=== PATIENT | male | born 1950 | race Caucasian/White ===

== ENCOUNTER 2018-12-26 12:33 | Outpatient (CLI) | payer MEDICARE, BC, SELFPAY ==
[2018-12-27 10:50] LABS: Lyme Ab w Rflx to Lyme Confirm Negative
== END 2018-12-26 12:53 ==
PROVIDERS: PCP Emergency Medicine; Visit Provider Emergency Medicine
DX: M25.50 Pain in unspecified joint (principal)
CPT/HCPCS: 36415; 86618

== ENCOUNTER 2019-02-27 09:44 | Outpatient (CLI) | payer MEDICARE, BC, SELFPAY ==
[2019-02-27 12:50] LABS: Anion Gap 7.4 mmol/L (3-11); BUN 23 mg/dL (7-18); CO2 28.6 mmol/L (21.0-32.0); CREATININE 1.06 mg/dL (0.70-1.30); Calcium 9.1 mg/dL (8.5-10.1); Chloride 108 mmol/L (98-107); Glucose 91 mg/dL (70-100); Potassium 5.2 mmol/L (3.5-5.1); Sodium 144 mmol/L (136-145)
== END 2019-02-27 10:04 ==
PROVIDERS: PCP Emergency Medicine; Visit Provider Emergency Medicine
DX: I42.8 Other cardiomyopathies (principal)
CPT/HCPCS: 36415; 80048

== ENCOUNTER 2020-03-03 04:47 | Outpatient (CLI) | payer MEDICARE, BC, SELFPAY | END 2020-03-03 05:07 | PROVIDERS: PCP Emergency Medicine; Visit Provider Internal Medicine | DX: I49.3 Ventricular premature depolarization (principal) | CPT/HCPCS: 93225 ==

== ENCOUNTER 2020-03-05 12:05 | Outpatient (CLI) | payer MEDICARE, BC, SELFPAY ==
--- NOTE | 2020-03-05 14:43 | W.HOLTRPT ---
Date of service: 03/05/20 Time of Service: 14:43 Holter Monitor Report Referring Provider:: Nona Young Indications:: PVCs. Holter Monitor Note: This is a 24-hour Holter monitor for indication of PVCs. ?The patient was in normal sinus rhythm for the majority of the recording. Mean heart rate was 64 bpm. ?There were 2 episodes of SVT with the longest lasting 11 beats. There were rare PACs. ?There were 0 episodes of ventricular tachycardia and occasional (3%) single ventricular ectopic beats. ?There are no episodes of atrial fibrillation, no pauses in 3 seconds no evidence of high degree heart block.
== END 2020-03-05 12:25 ==
PROVIDERS: PCP Emergency Medicine; Visit Provider Internal Medicine
DX: I49.3 Ventricular premature depolarization (principal); I47.1 Supraventricular tachycardia; I49.1 Atrial premature depolarization
CPT/HCPCS: 93226

== ENCOUNTER 2020-03-05 14:43 | Outpatient (CLI) | payer MEDICARE, BC, SELFPAY | END 2020-03-05 15:03 | PROVIDERS: PCP Emergency Medicine; Referring Provider Internal Medicine; Visit Provider Internal Medicine Cardiovascular Disease | DX: I49.3 Ventricular premature depolarization (principal); I47.1 Supraventricular tachycardia; I49.1 Atrial premature depolarization | CPT/HCPCS: 93227 ==

== ENCOUNTER 2020-05-05 12:28 | Outpatient (REF) | payer MEDICARE, BC, SELFPAY ==
[2020-05-05 22:01] LABS: Anion Gap 9.9 mmol/L (3-11); BUN 21 mg/dL (7-18); CO2 25.1 mmol/L (21.0-32.0); CREATININE 0.97 mg/dL (0.70-1.30); Calcium 9.1 mg/dL (8.5-10.1); Chloride 105 mmol/L (98-107); Glucose 87 mg/dL (74-106); NT-proBNP 152 pg/mL (<300); Potassium 4.4 mmol/L (3.5-5.1); Sodium 140 mmol/L (136-145)
== END 2020-05-05 12:48 ==
LOC: LBN 12:28
PROVIDERS: PCP Emergency Medicine; Visit Provider Emergency Medicine
DX: I10 Essential (primary) hypertension (principal); I50.9 Heart failure, unspecified
CPT/HCPCS: 80048; 83880

== ENCOUNTER 2020-06-11 04:39 | Outpatient (CLI) | payer MEDICARE, BC, SELFPAY ==
[2020-06-14 15:41] LABS: Patient Race White; SARS-CoV-2 RNA Undetected (Undetected); SARS-CoV-2 Specimen Source Nasal
== END 2020-06-11 04:59 ==
PROVIDERS: PCP Emergency Medicine; Visit Provider Emergency Medicine
DX: Z11.59 Encounter for screening for other viral diseases (principal)
CPT/HCPCS: U0003

== ENCOUNTER 2020-12-22 08:32 | Outpatient (CLI) | payer MEDICARE, BC, SELFPAY ==
[2020-12-22 12:59] LABS: Anion Gap 10.3 mmol/L (3-11); BUN 17 mg/dL (7-18); CO2 25.7 mmol/L (21.0-32.0); CREATININE 1.1 mg/dL (0.70-1.30); Calcium 9.1 mg/dL (8.5-10.1); Chloride 107 mmol/L (98-107); Glucose 107 mg/dL (74-106); NT-proBNP 65 pg/mL (<300); Potassium 4.2 mmol/L (3.5-5.1); Sodium 143 mmol/L (136-145)
== END 2020-12-22 08:33 | disposition home or self-care (01) ==
LOC: LOS 08:32
PROVIDERS: PCP Emergency Medicine; Visit Provider Emergency Medicine
DX: I10 Essential (primary) hypertension (principal); I50.9 Heart failure, unspecified
CPT/HCPCS: 36415; 80048; 83880

== ENCOUNTER 2021-03-11 01:52 | Outpatient (CLI) | payer MEDICARE, BC, SELFPAY ==
--- NOTE | 2021-03-11 | DI.US_ITS ---
APPROVED REPORT EXAM: Comprehensive 2D, Doppler, and color-flow Echocardiogram Patient Location: Out-Patient Time Broker: Charleen Brito RDCS ([place]) Indications: Cardiomyopathy, Premature ventricular contraction Other Information Study Quality: Adequate Conclusion Left Ventricle : The left ventricle is normal size. The left ventricular systolic function is normal. The left ventricular ejection fraction is within the normal range. There is normal left ventricular wall thickness. There is normal LV segmental wall motion. The left ventricular diastolic function is normal. LVEF is 55%. Right Ventricle : The right ventricle is normal size. The right ventricular systolic function is norm al. The RVSP is 25 mmHg. Atria : The left atrium size is normal. The right atrium size is normal. Valves: There are no hemodynamically significant valvular lesions. Great Vessels : The aortic root is normal in size. The ascending aorta is mildly dilated. Aortic arch is normal in caliber. IVC is normal in size and collapses >50% with inspiration. Please see remainder of study for further details. Wall motion Left Ventricle The left ventricle is normal size. The left ventricular systolic function is normal. The left ventric ular ejection fraction is within the normal range. There is normal left ventricular wall thickness. T here is normal LV segmental wall motion. The left ventricular diastolic function is normal. There is no ventricular septal defect visualized. LVEF is 55%. Right Ventricle The right ventricle is normal size. The right ventricular systolic function is normal. The RVSP is 25 mmHg. Atria The left atrium size is normal. The right atrium size is normal. 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 Aortic Valve The Aortic valve is sclerotic. Aortic valve is trileaflet. There is no aortic valvular stenosis. No a ortic regurgitation is present. Mitral Valve The mitral valve is normal in structure. No evidence of mitral valve stenosis. Trace mitral regurgita tion. Tricuspid Valve The tricuspid valve is normal in structure. There is no tricuspid valve stenosis. Trace tricuspid reg urgitation. Pulmonic Valve The pulmonary valve is normal in structure. There is no pulmonic valvular stenosis. Trace pulmonic re gurgitation. Great Vessels The aortic root is normal in size. The ascending aorta is mildly dilated. Aortic arch is normal in ca liber. IVC is normal in size and collapses >50% with inspiration. Pericardium There is no pericardial effusion. 2D Dimensions IVSD d PLAX 1.12 cm M: 0.6-1.2 LV Vol A2C d MOD 115.0 mL LVPW d PLAX 1.11 cm M: 0.6 - 1.2 LV Vol A4C d MOD 99.1 mL LVID d PLAX 4.95 cm M: 4.2 - 5.8 LA vol/ BSA A2C s A-L 18.3 mL/m2 LVDs 3.40 cm M: 2.5 - 4.0 LA vol/ BSA A4C s A-L 30.4 mL/m2 Ao Root d 3.58 cm M: 3.1 - 3.7 LA Vol/ BSA Biplane s A-L 24.6 mL/m2 RA Area A4C 16.10 cm2 LA Area A4C s MOD 18.72 cm2 RA Vol/ BSA A4C s A-L 23.1 mL/m2 LA Area A2C s MOD 13.94 cm2 Ao Asc Diam d 3.55 cm M: 2.6 - 3.4 LV EF A4C MOD 55.5 % LV EF Teichholz 57.9 % LV EF A2C MOD 55.6 % LVEF (Tenorio's) 57.21 % M: 52 - 72 LV EF Biplane MOD 57.2 % LV Volume 82.69 mL M: 62 - 150 SV 62.82 mL LV Volume Index 41.97 mL/m2 M: 34 - 74 SV Index 31.80 mL/m2 LV Vol Biplane MOD 109.8 mL FS 30.60 % M-Mode TAPSE 2.43 cm (M/F) >1.7 LV Diastology MV E' medial 0.075 (>0.07 m/s) E/A Ratio 0.8 LV E/e MED 6.10 (<14) MV E Vmax 0.46 (0.4-1.3 m/s) MV E' lateral 0.084 (>0.1 m/s) MV A Vmax 0.60 (0.4-1.3 m/s) LV E/e LAT 5.40 (<14) MV E/A Ratio 0.70 MV E/E' medial 6.12 MV E/E' lateral 5.41 Aortic Valve LVOT Area 3.57 cm2 AoV Area Vmax 2.67 cm2 LVOT Vmax 0.99 m/s AoV Area/ BSA (Vmax) 1.35 cm2/m2 LVOT Mean Josue. 0.60 m/s MISHA Mean Josue. 2.51 cm2 LVOT Peak Grad 4.0 mmHg MISHA Mean Josue. Index 1.27 cm2/m2 LVOT Mean Grad 1.8 mmHg LVOT VTI 0.194 m LVOT Diam s 2.10 cm AoV Vmax 1.33 m/s Velocity Ratio 0.74 AoV Mean Josue. 0.86 m/s AoV Peak Grad 7.1 mmHg LVOT SV 69.35 mL AoV Mean Grad 3.4 mmHg AoV VTI 0.239 m AoV Area VTI 2.90 cm2 AoV Area/ BSA (VTI) 1.47 cm/m2 Mitral Valve MV DT 469 (160-240 msec) MV PHT 136 msec MV Area PHT 1.62 cm2 MV VTI 0.233 m MV Area VTI 2.98 (4.0-6.0 cm2) Pulmonary Valve PV Vmax 1.45 (0.5-1.5 m/s) RVOT Peak Gr. 2.42 mmHg PV Peak Grad 8.5 mmHg RVOT Mean Gr. 1.05 mmHg PV Mean Grad 3.9 mmHg RVOT VTI 0.159 m PV VTI 0.270 m RVOT Vmax 0.78 m/s Tricuspid Valve TR Peak Grad 22.3 mmHg TR Vmax 2.37 m/s RA Pressure 3.00 mmHg RVSP (TR) 25.4 mmHg
== END 2021-03-11 02:12 ==
PROVIDERS: PCP Emergency Medicine; Visit Provider Internal Medicine
DX: I42.9 Cardiomyopathy, unspecified (principal); I49.3 Ventricular premature depolarization; I77.810 Thoracic aortic ectasia
CPT/HCPCS: 93306

== ENCOUNTER 2021-06-24 16:19 | Outpatient (REF) | payer MEDICARE, BC, SELFPAY | END 2021-06-24 16:20 | disposition home or self-care (01) | LOC: LBN 16:19 | PROVIDERS: PCP Emergency Medicine; Visit Provider Emergency Medicine | DX: R19.7 Diarrhea, unspecified (principal) | CPT/HCPCS: 87329 ==

== ENCOUNTER → 2022-03-08 01:15 | Outpatient (CLI) | payer MEDICARE, SELFPAY ==
--- NOTE | 2022-03-08 07:00 | DI.US_ITS ---
APPROVED REPORT EXAM: Comprehensive 2D, Doppler, and color-flow Echocardiogram Patient Location: Out-Patient Billing Checker: Charleen Brito RDCS ([place]) Indications: F/U Cardiomyopathy Other Information Study Quality: Adequate Conclusion Normal left ventricular wall thickness and chamber size. Estimated ejection fraction is 55%. Wall m otion is normal Normal right ventricular size and systolic function Both atria are normal in size. There is an atrial septal aneurysm There are no structural valvular abnormalities Trace to mild mitral regurgitation Trace tricuspid regurgitation. Estimated right ventricular systolic pressure is 20 mmHg Mildly dilated ascending aorta measuring 3.55 cm Wall motion Left Ventricle The left ventricle is normal size. The left ventricular systolic function is normal. The left ventric ular ejection fraction is within the normal range. There is normal left ventricular wall thickness. T here is normal LV segmental wall motion. There is no ventricular septal defect visualized. LVEF is 55 %. Right Ventricle The right ventricle is normal size. The right ventricular systolic function is normal. The RVSP is 20 .2mmHg. Atria The left atrium size is normal. The right atrium size is normal. Atrial septal aneurysm is present. Aortic Valve The aortic valve is normal in structure. Aortic valve is trileaflet. There is no aortic valvular sten osis. No aortic regurgitation is present. Mitral Valve The mitral valve is normal in structure. No evidence of mitral valve stenosis. Trace to mild mitral r egurgitation. Tricuspid Valve The tricuspid valve is normal in structure. There is no tricuspid valve stenosis. Trace tricuspid reg urgitation. Pulmonic Valve The pulmonary valve is normal in structure. There is no pulmonic valvular stenosis. Trace to mild pul cathi regurgitation. Great Vessels The aortic root is normal in size. The ascending aorta is mildly dilated. Aortic arch is normal in ca liber. IVC is normal in size and collapses >50% with inspiration. Pericardium There is no pericardial effusion. 2D Dimensions IVSD d PLAX 1.12 cm M: 0.6-1.2 LV Vol A2C d MOD 92.0 mL LVPW d PLAX 1.10 cm M: 0.6 - 1.2 LV Vol A4C d MOD 103.4 mL LVID d PLAX 5.06 cm M: 4.2 - 5.8 LA vol/ BSA A2C s A-L 28.6 mL/m2 LVDs 3.60 cm M: 2.5 - 4.0 LA vol/ BSA A4C s A-L 16.7 mL/m2 Ao Root d 3.45 cm M: 3.1 - 3.7 LA Vol/ BSA Biplane s A-L 22.8 mL/m2 RA Area A4C 14.11 cm2 LA Area A4C s MOD 14.36 cm2 RA Vol/ BSA A4C s A-L 18.7 mL/m2 LA Area A2C s MOD 18.01 cm2 Ao Asc Diam d 3.55 cm M: 2.6 - 3.4 LV EF A4C MOD 56.9 % LV EF Teichholz 54.9 % LV EF A2C MOD 55.0 % LVEF (Tenorio's) 54.31 % M: 52 - 72 LV EF Biplane MOD 54.3 % LV Volume 73.52 mL M: 62 - 150 SV 53.04 mL LV Volume Index 37.31 mL/m2 M: 34 - 74 SV Index 26.82 mL/m2 LV Vol Biplane MOD 97.7 mL FS 28.60 % M-Mode TAPSE 2.45 cm (M/F) >1.7 LV Diastology MV E' medial 0.080 (>0.07 m/s) E/A Ratio 0.6 LV E/e MED 5.30 (<14) MV E Vmax 0.43 (0.4-1.3 m/s) MV E' lateral 0.065 (>0.1 m/s) MV A Vmax 0.75 (0.4-1.3 m/s) LV E/e LAT 6.55 (<14) MV E/A Ratio 0.56 MV E/E' medial 5.35 MV E/E' lateral 6.55 Aortic Valve LVOT Area 3.55 cm2 AoV Area Vmax 2.63 cm2 LVOT Vmax 0.93 m/s AoV Area/ BSA (Vmax) 1.33 cm2/m2 LVOT Mean Josue. 0.59 m/s MISHA Mean Josue. 2.37 cm2 LVOT Peak Grad 3.4 mmHg MISHA Mean Josue. Index 1.20 cm2/m2 LVOT Mean Grad 1.7 mmHg LVOT VTI 0.198 m LVOT Diam s 2.10 cm AoV Vmax 1.25 m/s Velocity Ratio 0.74 AoV Mean Josue. 0.89 m/s AoV Peak Grad 6.3 mmHg LVOT SV 70.27 mL AoV Mean Grad 3.4 mmHg AoV VTI 0.242 m AoV Area VTI 2.91 cm2 AoV Area/ BSA (VTI) 1.47 cm/m2 Mitral Valve MV DT 609 (160-240 msec) MR Vmax 5.13 m/s MV PHT 177 msec MR VTI 1.817 m MV Area PHT 1.25 cm2 MR Peak Grad 105.4 mmHg MV VTI 0.365 m MR Mean Grad 75.9 mmHg MV Area VTI 1.93 (4.0-6.0 cm2) Pulmonary Valve PV Vmax 1.28 (0.5-1.5 m/s) RVOT Peak Gr. 1.09 mmHg PV Peak Grad 6.5 mmHg RVOT Mean Gr. 0.55 mmHg PV Mean Grad 3.4 mmHg RVOT VTI 0.113 m PV VTI 0.246 m RVOT Vmax 0.52 m/s Tricuspid Valve TR Peak Grad 17.2 mmHg TR Vmax 2.07 m/s RA Pressure 3.00 mmHg RVSP (TR) 20.2 mmHg
== END ==
PROVIDERS: PCP Family Medicine; Visit Provider Family Medicine
DX: I42.8 Other cardiomyopathies (principal)
CPT/HCPCS: 93306

== ENCOUNTER 2022-04-25 04:36 | Outpatient (CLI) | payer MEDICARE, SELFPAY ==
[2022-04-25 12:39] LABS: Anion Gap 8.7 mmol/L (3-11); BUN 21 mg/dL (7-18); CO2 25.3 mmol/L (21.0-32.0); CREATININE 1.2 mg/dL (0.70-1.30); Calcium 8.8 mg/dL (8.5-10.1); Chloride 108 mmol/L (98-107); Estimated GFR 63.85 (mL/min/1.73m2); Glucose 99 mg/dL (74-106); Potassium 4.2 mmol/L (3.5-5.1); Sodium 142 mmol/L (136-145)
== END 2022-04-25 04:37 | disposition home or self-care (01) ==
LOC: LOS 04:37
PROVIDERS: PCP Family Medicine; Visit Provider Family Medicine
DX: I10 Essential (primary) hypertension (principal)
CPT/HCPCS: 36415; 80048

== ENCOUNTER 2022-08-05 01:10 | Outpatient (CLI) | payer MEDICARE, SELFPAY ==
[2022-08-05 12:37] LABS: ALT 29 U/L (16-63); AST 20 U/L (15-37); Albumin 3.9 g/dL (3.4-5.0); Alkaline Phosphatase 75 U/L (46-116); Anion Gap 8.5 mmol/L (3-11); BUN 17 mg/dL (7-18); Bilirubin, Total 0.7 mg/dL (0.2-1.0); CO2 25.5 mmol/L (21.0-32.0); CREATININE 1.1 mg/dL (0.70-1.30); Calcium 8.9 mg/dL (8.5-10.1); Calculated LDL 111 mg/dL (<100); Chloride 109 mmol/L (98-107); Cholesterol 180 mg/dL (<200); Estimated GFR 70.88 (mL/min/1.73m2); Glucose 96 mg/dL (74-106); HDL Cholesterol 48 mg/dL (40-60); Potassium 4.5 mmol/L (3.5-5.1); Sodium 143 mmol/L (136-145); Total Protein 7.1 g/dL (6.4-8.2); Triglyceride 106 mg/dL (<150)
== END 2022-08-05 01:11 | disposition home or self-care (01) ==
LOC: LOS 01:10
PROVIDERS: PCP Family Medicine; Visit Provider Family Medicine
DX: I10 Essential (primary) hypertension (principal); I42.8 Other cardiomyopathies
CPT/HCPCS: 36415; 80053; 80061

== ENCOUNTER 2022-09-19 10:12 | Outpatient (CLI) | payer MEDICARE, SELFPAY ==
--- NOTE | 2022-09-19 | DI.US_ITS ---
APPROVED REPORT EXAM: Comprehensive 2D, Doppler, and color-flow Echocardiogram Patient Location: Out-Patient Automobile Dealer: Charleen Brito RDCS ([place]) Indications: Nonsustained ventricular tachycardia Other Information Study Quality: Adequate Conclusion Normal left ventricular wall thickness and chamber size. Estimated ejection fraction is 55%. There are no segmental wall motion abnormalities Normal right ventricular size and systolic function Both atria are normal in size Aortic valve is trileaflet and mildly sclerotic without stenosis or regurgitation Mildly thickened mitral leaflets, trace to mild mitral regurgitation Normal tricuspid valve with mild regurgitation. Estimated right ventricular systolic pressure is 24 mmHg Mildly dilated ascending aorta measuring 3.51 cm Wall motion Left Ventricle The left ventricle is normal size. The left ventricular systolic function is normal. The left ventric ular ejection fraction is within the normal range. There is normal left ventricular wall thickness. T here is normal LV segmental wall motion. There is no ventricular septal defect visualized. LVEF is 55 %. Right Ventricle The right ventricle is normal size. The right ventricular systolic function is normal. The RVSP is 24 .1 mmHg. Atria The left atrium size is normal. The right atrium size is normal. Atrial septal aneurysm is present. Aortic Valve The Aortic valve is mildly sclerotic. Aortic valve is trileaflet. There is no aortic valvular stenosi s. No aortic regurgitation is present. Mitral Valve . The mitral valve is mildly thickened. No evidence of mitral valve stenosis. Trace to mild mitral regurgitation. Tricuspid Valve The tricuspid valve is normal in structure. There is no tricuspid valve stenosis. Mild tricuspid regu rgitation. Pulmonic Valve The pulmonary valve is normal in structure. There is no pulmonic valvular stenosis. Mild to moderate pulmonic regurgitation. Great Vessels The aortic root is normal in size. The ascending aorta is mildly dilated. Aortic arch is normal in ca liber. IVC is normal in size and collapses >50% with inspiration. Pericardium There is no pericardial effusion. Technically limited subcostal imaging. 2D Dimensions IVSD d PLAX 0.96 cm M: 0.6-1.2 LV Vol A2C d MOD 107.1 mL LVPW d PLAX 0.96 cm M: 0.6 - 1.2 LV Vol A4C d MOD 122.6 mL LVID d PLAX 5.27 cm M: 4.2 - 5.8 LA vol/ BSA A2C s A-L 24.1 mL/m2 LVDs 3.65 cm M: 2.5 - 4.0 LA vol/ BSA A4C s A-L 24.1 mL/m2 Ao Root d 3.44 cm M: 3.1 - 3.7 LA Vol/ BSA Biplane s A-L 24.8 mL/m2 RA Area A4C 16.04 cm2 LA Area A4C s MOD 17.44 cm2 RA Vol/ BSA A4C s A-L 19.8 mL/m2 LA Area A2C s MOD 16.97 cm2 Ao Asc Diam d 3.51 cm M: 2.6 - 3.4 LV EF A4C MOD 55.8 % LV EF Teichholz 57.8 % LV EF A2C MOD 55.5 % LVEF (Tenorio's) 54.33 % M: 52 - 72 LV EF Biplane MOD 54.3 % LV Volume 88.16 mL M: 62 - 150 SV 63.85 mL LV Volume Index 44.08 mL/m2 M: 34 - 74 SV Index 31.95 mL/m2 LV Vol Biplane MOD 117.5 mL FS 30.65 % M-Mode TAPSE 2.12 cm (M/F) >1.7 LV Diastology MV E' medial 0.076 (>0.07 m/s) E/A Ratio 0.7 LV E/e MED 6.25 (<14) MV E Vmax 0.48 (0.4-1.3 m/s) MV E' lateral 0.073 (>0.1 m/s) MV A Vmax 0.65 (0.4-1.3 m/s) LV E/e LAT 6.45 (<14) MV E/A Ratio 0.68 MV E/E' medial 6.28 MV E/E' lateral 6.49 Aortic Valve LVOT Area 3.16 cm2 AoV Area Vmax 2.42 cm2 LVOT Vmax 0.92 m/s AoV Area/ BSA (Vmax) 1.21 cm2/m2 LVOT Mean Josue. 0.61 m/s MISHA Mean Josue. 2.29 cm2 LVOT Peak Grad 3.4 mmHg MISHA Mean Josue. Index 1.15 cm2/m2 LVOT Mean Grad 1.7 mmHg LVOT VTI 0.188 m LVOT Diam s 2.00 cm AoV Vmax 1.20 m/s Velocity Ratio 0.77 AoV Mean Josue. 0.84 m/s AoV Peak Grad 5.7 mmHg LVOT SV 59.41 mL AoV Mean Grad 3.1 mmHg AoV VTI 0.227 m AoV Area VTI 2.61 cm2 AoV Area/ BSA (VTI) 1.31 cm/m2 Mitral Valve MV DT 315 (160-240 msec) MV PHT 91 msec MV Area PHT 2.41 cm2 MV VTI 0.266 m MV Area VTI 2.24 (4.0-6.0 cm2) Pulmonary Valve PV Vmax 1.27 (0.5-1.5 m/s) RVOT Peak Gr. 1.25 mmHg PV Peak Grad 6.4 mmHg RVOT Mean Gr. 0.55 mmHg PV Mean Grad 3.4 mmHg RVOT VTI 0.109 m PV VTI 0.228 m RVOT Vmax 0.56 m/s Tricuspid Valve TR Peak Grad 21.1 mmHg TR Vmax 2.30 m/s RA Pressure 3.00 mmHg RVSP (TR) 24.1 mmHg
== END 2022-09-19 10:32 ==
LOC: DI 10:12
PROVIDERS: PCP Family Medicine; Visit Provider Internal Medicine
DX: I47.29 Other ventricular tachycardia (principal)
CPT/HCPCS: 93306

== ENCOUNTER → 2022-12-15 08:35 | Outpatient (BNVA) | payer MEDICARE, SELFPAY | PROVIDERS: PCP Family Medicine; Referring Provider Family Medicine; Visit Provider Physical Therapy Assistant | DX: Z12.11 Encounter for screening for malignant neoplasm of colon (principal); Z86.010 Personal history of colon polyps ==

== ENCOUNTER → 2022-12-26 08:17 | Outpatient (BNVA) | payer MEDICARE, SELFPAY | PROVIDERS: PCP Family Medicine; Referring Provider Family Medicine; Visit Provider Surgery | DX: L91.8 Other hypertrophic disorders of the skin (principal) | CPT/HCPCS: 11200; 99212 ==

== ENCOUNTER 2023-01-06 06:07 | Day surgery (SDC) | payer MEDICARE, SELFPAY ==
--- NOTE | 2023-01-05 12:40 | PDOC.DSDIS_ITS ---
Date of service: 01/06/23 Time of Service: 08:40 Discharge Plan Disposition Patient Disposition: Home Discharge Details Reason For Visit: EGD and colon Attending Provider: Juany Hawkins Primary Care Provider: Corrine Angeles Home Meds and New Rx's Prescriptions: No Action Metamucil 3.4 gram/5.4 gram powder 2 tsp PO DAILY Rx Instructions: mix into at least 8 oz of water or juice before administering spironolactone 25 mg tablet 25 mg PO DAILY Qty: 90 3RF tamsulosin 0.4 mg capsule 0.4 mg PO DAILY Qty: 90 3RF Discharge Instructions Additional Instructions: DSU Colonoscopy Post- Op Instructions Instructions for Everyone who is given Anesthesia: For your safety, please do the following for the next twenty-four (24) hours: *Do Not operate a motor vehicle (car, truck, motorcycle, etc.) *Do Not drink alcoholic beverages or use any recreational drugs for the first 24 hours or while taking pain medications. The medications in your body may have a reaction that can be dangerous. *Do Not make any important decisions or sign any important papers. Findings: normal esophagus and stomach diverticula of colon -Metamucil daily. Miralax at bedtime if you do not have a BM during the day. Follow up: My office will send a letter in 2 to 3 weeks time with the biopsy results. 1. No lifting over 20 pounds or strenuous activity for the first 24 hours after your procedure. After 24 hours there are no restrictions on your activity but you may feel fatigued for a few days. 2. After you arrive home you may have a light meal and return to your normal diet as you can tolerate it without feeling sick to your stomach. 3. You may have a bloated, gaseous feeling in your belly (abdomen) after a colonoscopy. Passing gas and belching will help. Walking or lying down on your left side with your knees flexed may relieve the discomfort. Call the office at [phone] (Office) or [phone] (Hospital) right away if you notice any of the following: a.Vomiting of blood or ?coffee ground stools?. b.Rectal bleeding 1Tbsp, blood clots or continuous bleeding. c.Severe belly (abdominal) pain. d.A hard distended belly (abdomen) and an inability to pass gas. 4. Please don?t expect to have a normal BM (bowel movement) for 2-3 days after your procedure. 5. If there are questions regarding the findings of your procedure, please contact your doctor 6. If you are unable to contact your doctor with a problem, contact the hospital at [phone]. 7. Continue all your regular medications unless directed otherwise. I understand the above instructions and have no questions. Signature of Patient or Adult Escort Name of Responsible Adult Escort Signature of Nurse Date/Time Fermented Foods * kefir. * tempeh. * natto. * kombucha. * miso. * kimchi. * sauerkraut. * probiotic yogurt * * look for locally produced foods- [employer] ([employer]). * [employer] ([employer]). * Some of these products are available at [employer] Activity:: see above Diet:: see above Discharge Orders Discharge Orders: Discharge Order (Routine); Ordered 01/06/23 Ordered By: Juany Hawkins DS: Diagnosis Discharge Diagnosis (1) Polyp of colon: (2) Dysphagia: Status: Acute (3) Irritable bowel syndrome: Status: Chronic (4) Diverticulitis: Status: Chronic Asessment and Plan: The patient is seen and examined after their colonoscopy.? The patient has been able to pass gas.? They are not having abdominal pain.? They have been able to tolerate liquids and a snack.? They do not have any nausea or vomiting.? They are not having any chest pain or shortness of breath.??? They are not having any rectal bleeding. Their vital signs have been stable-see nursing notes. We discussed findings during their colonoscopy, and any biopsies that were done/polyps that were removed. The patient will be sent a letter with any biopsy results, and when to repeat the colonoscopy.-see discharge instructions. Patient was given explicit instructions to follow-up regarding colonoscopy-refer to discharge instructions.? We reviewed resumption of medications. Patient verbalized understanding and discharged in stable and satisfactory condition- See nursing notes.
--- NOTE | 2023-01-05 15:26 | ENDO_ITS ---
Date of service: 01/06/23 Time of Service: 08:48 Endoscopy Report PRE-OP DIAGNOSIS: dysphagia POST-OP DIAGNOSIS: other (normal ) SURGEON: Juany Hawkins ANESTHESIA TYPE: General:No Airway ESTIMATED BLOOD LOSS: 1 PATHOLOGY: other COMPLICATIONS: None DISPOSITION: same day PROCEDURE DESCRIPTION: After informed consent was obtained the patient was take to the procedure room and placed in a supine position. Monitors were applied and a time out was done. The patients name, date of , procedure type, allergies to medications and metal in their body was reviewed. A bite block was placed and the patient was sedated. Once sedated and comfortable the gastroscope was advanced through the oropharynx which was grossly normal into the esophagus. The proximal and mid- esophagus were normal normal. In the distal esophagus there was no: Esophageal erosions/varices/diverticula/stenosis/hiatal hernia. The scope was advanced into the stomach and through the pylorus into the 3rd portion of the duodenum. The duodenum was noted to be normal. Biopsies were done were no. The scope was retracted back into the stomach and biopsies were done to rule out H. pylori. There were no ulcers /gastritis. The scope was retroflexed. The cardia and fundus were noted to be normal. There is no hiatal hernia noted. The scope was retracted back into the esophagus and biopsies were done of the GE junction to rule out Suarez's. The Z line was regular. The GE junction was at 42 cm. The scope was removed and the patient was woken up and taken back to [facility] in stable condition.
--- NOTE | 2023-01-05 15:27 | W.COLOREPORT ---
Date of service: 01/06/23 Time of Service: 08:45 Colonoscopy Report Date of procedure: 01/06/23 Pre-op diagnosis general: diverticulosis/overflow incont/chronic constipation Post-op diagnosis procedure note: same Surgeon: Juany Hawkins Anesthesia Type: General:No Airway Estimated blood loss (mL): 0 Pathology: other Complications: None Disposition: same day Prep: Miralax/Dulcolax Retraction Time: 15 Procedure Description: After informed consent was obtained the patient was taken to the procedure room and placed in a left decubitous position. Monitors were applied and a time out was done. The patients name, date of , procedure, allergies to medications and metal in their body was reviewed. The patient was then sedated. Once sedated and comfortable a rectal exam was done. External exam shows x1 ext hemorrhoid.. Internal exam revealed a normal sphincter tone and no palpable masses. The scope was then introduced and retrofelexed. No internal hemorrhoids were identified. The scope was then advanced to the cecum w/out difficulty. The TI and appendiceal orifice were identified. The prep was to see how he BBPS 3 in all segments for a total of 9. The scope was then slowly retracted over 15 minutes back into the rectum. The colon is very tortuous and redundant. He does have few small mouth diverticula confined to the sigmoid colon. There is no signs of active bleeding or infection. There are no polyps or AVMs visualized today. The scope was removed and the patient was woken up and taken back to Same day surgery in stable condition. The patient tolerated the procedure well and there were no immediate complications. Follow up: The patient does not require repeat colonoscopy, unless they develop changes in bowel habits or other new gastrointestinal complaints.
[2023-01-06 06:12] VITALS: BP 152/86; PULSE 58; RESP 18; TEMP 36.4; O2SAT 98
--- NOTE | 2023-01-06 06:41 | ANES.PREOP_ITS ---
General Info Date of Service Date Performed: 01/06/23 Height: 5 ft 8 in Weight: 81.2 kg Body Mass Index (BMI): 27.2 Surgical Procedure: Operation Date: 01/06/23 07:35 Proposed Procedure Side Surgeon p Colonoscopy/Gastroscopy Juany Hawkins, DO Meds Allergies and Home Medications Allergies Allergy/AdvReac Type Severity Reaction Status Date / Time No Known Allergies Allergy Verified 01/06/23 06:17 Home Medication Medication Instructions Recorded psyllium husk 3.4 gram/5.4 gram 2 tsp PO DAILY 08/12/21 oral powder (Metamucil) tamsulosin 0.4 mg capsule 0.4 mg PO DAILY #90 tab-caps 02/28/22 spironolactone 25 mg tablet 25 mg PO DAILY #90 tabs 07/27/22 Current Visit Medications: Current Medications Generic Name Dose Route Start Last Admin Trade Name Freq PRN Reason Stop Dose Admin Hyoscyamine Sulfate 0.125 mg 01/06/23 00:38 Hyoscyamine 0.125 Mg Sl/Oral/Chew SL 02/05/23 00:37 DIRECTED PRN Ringer's Solution 1,000 mls @ 80 mls/hr 01/06/23 06:00 IV 02/04/23 23:59 INFUSION [facility] IV Miscellaneous Supplies 1 each 01/06/23 06:00 Iv Access IV 02/04/23 23:59 DIRECTED [facility] Ondansetron HCl 4 mg 01/06/23 00:38 Ondansetron 4 Mg/2 Ml Vial IVP 02/05/23 00:37 Q4H PRN PRN Nausea / Vomiting Sodium Chloride 0 ml 01/06/23 06:00 Normal Saline Flush 10 Ml Syr IV 02/04/23 23:59 PRN PRN Sodium Chloride 0 ml 01/06/23 06:00 Normal Saline 10 Ml Vial IJ 02/04/23 23:59 DIRECTED PRN Sterile Water 0 ml 01/06/23 06:00 Water,Injection,Sterile 10 Ml Vial IJ 02/04/23 23:59 DIRECTED PRN PFSH Active Problems Active Problems: Problem Status Onset Code Dysphagia 12/29/15 R13.10 Benign prostatic hyperplasia with urinary obstruction N40.1, N13.8 Non-ischemic cardiomyopathy I42.8 Sensorineural hearing loss, bilateral H90.3 Tinnitus, bilateral H93.13 Irritable bowel syndrome K58.9 Skin lesion L98.9 Skin tag L91.8 Diverticulitis K57.92 Medical History Medical History (Updated 01/06/23 @ 06:46 by Homa Novoa RN) Family history of malignant neoplasm of prostate (02/05/13) Polyp of colon (02/25/10) Dr. Arturo Urias Sleep apnea Surgical History Surgical History (Updated 01/06/23 @ 06:22 by Homa Novoa RN) H/O colonoscopy with polypectomy History of esophagogastroduodenoscopy S/P ablation operation for arrhythmia Status post arthroscopy of shoulder Status post rotator cuff repair Status post tonsillectomy Tobacco Smoking/Tobacco Use Status: Never Passive smoking exposure: Yes Alcohol Alcohol Intake: current Alcohol intake frequency: a few times a month Alcohol type: beer Substance Use Substance use: Never Substance use type: does not use Vital Signs and Lab Results Vital Signs Most Recent Vital Signs in EMR: Most Recent Vital Signs Temp Pulse Resp BP Pulse Ox 36.4 C L 58 L 18 152/86 H 98 01/06/23 06:12 01/06/23 06:12 01/06/23 06:12 01/06/23 06:12 01/06/23 06:12 Lab Results Blood Type / Crossmatch: No Data to Display Complete Blood Count: No Data to Display Complete Metabolic Panel: No Data to Display Liver Function Panel: No Data to Display Coagulation Panel: No Data to Display Cardiac Panel: No Data to Display Arterial Blood Gas: No Data to Display Venous Blood Gas: No Data to Display Pancreas Panel: No Data to Display Thyroid Panel: No Data to Display Infectious Disease: No Data to Display Blood Cultures: No Data to Display Toxicology Panel: No Data to Display Imaging and Studies Imaging and Studies Study information below may be from another EMR and interpreted by another provider. Please see original notes in EMR for more complete details. Stress Test Summary: STRESS TEST PATIENT NAME: SATNAM MAGUIRE #: [id number] ADMITTING PROVIDER: RIKI SEARS, PREETHACCOUNT #: [id number] PRIMARY CARE PROVIDER:DEVONTE FRIEDMANATE OF SERVICE: 07/07/17 : 1950 *[facility]* *[facility]* [address] [place] [address] Stress Electrocardiography Oh protocol Date of study: 07/07/2017 *PATIENT PRESENTATION* Height: 177.8cm (70in) Blood Pressure: Weight: 81.8kg (180lb) BSA: 2.02m^2 Ordering physician: Devonte Friedman Impressions: - Normal study after maximal exercise. - Frequent PVC's at baseline that reduced in frequency at peak stress. Summary: 1. Stress: The target heart rate was achieved. Indication: R55. History: REASON FOR VISIT: SYNCOPE. PT EXPERIENCED A LOSS OF CONSCIOUSNESS WHILE DRIVING, POSSIBLE THAT PATIENT MAY HAVE FALLEN ASLEEP DRIVING. PT REPORTS OCCASIONAL PALPITATIONS, NO CHEST PAINS. HE VERBALIZES THAT 20 YEARS AGO I WAS TOLD I HAVE AN IRREGULAR HEART RHYTHM. Risk factors: FATHER HAD A STROKE AT AGE OF 78 YEARS. Family history of coronary artery disease. ALLERGIES: NO KNOWN ALLERGIES. MEDICATIONS: ASCORBIC ACID 500 MG DAILY. TAMSULOSIN HCL 0.4 MG DAILY. Protocol: Oh protocol. Baseline ECG: SINUS RHYTHM WITH MANY PVCs. HR 74 BPM. Stress protocol: + +---+ + !Stage !HR !BP (mmHg) ! + +---+ + !Baseline supine !74 !138/88 (105)! + +---+ + !Baseline standing !81 !138/84 (102)! + +---+ + !Stage I; 1.7mph, 10degrees; 3 min !102!142/86 (105)! + +---+ + !Stage II; 2.5mph, 12degrees; 3 min !113!150/84 (106)! + +---+ + !Stage III; 3.4mph, 14degrees; 3 min!135!156/78 (104)! + +---+ + !Peak stress !160! ! + +---+ + !Immediate post stress !---!164/78 (107)! + +---+ + !Recovery; 3 min !90 !162/80 (107)! + +---+ + !Recovery; 6 min !81 !156/80 (105)! + +---+ + !Recovery; 9 min !81 !132/80 (97) ! + +---+ + * Stress results: Maximal heart rate during stress was 160bpm (105% of maximal predicted heart rate). The maximal predicted heart rate was 152bpm. The target heart rate was achieved. The rate-pressure product for the peak heart rate and blood pressure was 02741gl Hg/min. Stress ECG: TREADMILL STRESS TEST ENDED IN 10 MINUTES & 29 SECONDS BECAUSE OF PATIENT FATIGUE. NORMAL HEART RATE AND BLOOD PRESSURE RESPONSE TO EXERCISE. FREQUENT ECTOPY. PVCs FREQUENT BIGEMINAL PATTERNS, FREQUENT PVC PAIRS AND OCCASIONAL 3 BEAT RUNS. NO ANGINA. NO SIGNIFICANT ST CHANGES. APPROXIMATE METS ACHIEVED = 12.6 ABOVE AVERAGE FUNCTIONAL CAPACITY FOR EXERCISE. Study data: Sara Rodriguez MD supervised and was readily available during the procedure. This study was interpreted by [facility]. Study status: Routine. Consent: The risks, benefits, and alternatives to the procedure were explained to the patient and informed consent was obtained. Procedure: Initial setup. A baseline ECG was recorded. Surface ECG leads and manual cuff blood pressure measurements were monitored. Heart sounds: Irregular. Lung sounds: Normal. Treadmill exercise testing was performed using the Oh protocol. Study completion: The patient tolerated the procedure well and was discharged from the lab. Discharge: The patient left the laboratory in stable condition. Birthdate: Patient birthdate: 1950. Sex: Gender: male. Study date: Study date: 07/07/2017. Study time: 08:30 AM. Signature Documentation: The Stress ECG portion of this study was interpreted by Sara Rodriguez MD. Electronically signed by Sara Rodriguez 07/07/2017 09:48 STRESS TEST PATIENT NAME: SATNAM MAGUIRE #: [id number] ADMITTING PROVIDER: RIKI SEARS, PREETHACCOUNT #: [id number] PRIMARY CARE PROVIDER:DEVONTE FRIEDMANATE OF SERVICE: 07/07/17 : 1950 *[facility]* *[facility]* [address] [place] [address] Stress Electrocardiography Oh protocol Date of study: 07/07/2017 *PATIENT PRESENTATION* Height: 177.8cm (70in) Blood Pressure: Weight: 81.8kg (180lb) BSA: 2.02m^2 Ordering physician: Devonte Freidman Impressions: - Normal study after maximal exercise. - Frequent PVC's at baseline that reduced in frequency at peak stress. Summary: 1. Stress: The target heart rate was achieved. Indication: R55. History: REASON FOR VISIT: SYNCOPE. PT EXPERIENCED A LOSS OF CONSCIOUSNESS WHILE DRIVING, POSSIBLE THAT PATIENT MAY HAVE FALLEN ASLEEP DRIVING. PT REPORTS OCCASIONAL PALPITATIONS, NO CHEST PAINS. HE VERBALIZES THAT 20 YEARS AGO I WAS TOLD I HAVE AN IRREGULAR HEART RHYTHM. Risk factors: FATHER HAD A STROKE AT AGE OF 78 YEARS. Family history of coronary artery disease. ALLERGIES: NO KNOWN ALLERGIES. MEDICATIONS: ASCORBIC ACID 500 MG DAILY. TAMSULOSIN HCL 0.4 MG DAILY. Protocol: Oh protocol. Baseline ECG: SINUS RHYTHM WITH MANY PVCs. HR 74 BPM. Stress protocol: + +---+ + !Stage !HR !BP (mmHg) ! + +---+ + !Baseline supine !74 !138/88 (105)! + +---+ + !Baseline standing !81 !138/84 (102)! + +---+ + !Stage I; 1.7mph, 10degrees; 3 min !102!142/86 (105)! + +---+ + !Stage II; 2.5mph, 12degrees; 3 min !113!150/84 (106)! + +---+ + !Stage III; 3.4mph, 14degrees; 3 min!135!156/78 (104)! + +---+ + !Peak stress !160! ! + +---+ + !Immediate post stress !---!164/78 (107)! + +---+ + !Recovery; 3 min !90 !162/80 (107)! + +---+ + !Recovery; 6 min !81 !156/80 (105)! + +---+ + !Recovery; 9 min !81 !132/80 (97) ! + +---+ + * Stress results: Maximal heart rate during stress was 160bpm (105% of maximal predicted heart rate). The maximal predicted heart rate was 152bpm. The target heart rate was achieved. The rate-pressure product for the peak heart rate and blood pres Echocardiogram Summary: Patient Name: Bharat Maguire #: [id number]: MIRI Ordering Provider: Pawel Alarcon Sa #: [id number]: [facility] Primary Care Provider: Corrine Angeles M.D.Date of Exam: 09/19/22Sex: M Admission Date: 09/19/22 : 1950 Age: 71 APPROVED REPORT EXAM: Comprehensive 2D, Doppler, and color-flow Echocardiogram Patient Location: Out-Patient Process Development Associate: Charleen Brito RDCS (AE) Indications: Nonsustained ventricular tachycardia Other Information Study Quality: Adequate Conclusion Normal left ventricular wall thickness and chamber size. Estimated ejection fraction is 55%. There are no segmental wall motion abnormalities Normal right ventricular size and systolic function Both atria are normal in size Aortic valve is trileaflet and mildly sclerotic without stenosis or regurgitation Mildly thickened mitral leaflets, trace to mild mitral regurgitation Normal tricuspid valve with mild regurgitation. Estimated right ventricular systolic pressure is 24 mmHg Mildly dilated ascending aorta measuring 3.51 cm Wall motion Left Ventricle The left ventricle is normal size. The left ventricular systolic function is normal. The left ventricular ejection fraction is within the normal range. There is normal left ventricular wall thickness. There is normal LV segmental wall motion. There is no ventricular septal defect visualized. LVEF is 55%. Right Ventricle The right ventricle is normal size. The right ventricular systolic function is normal. The RVSP is 24.1 mmHg. Atria The left atrium size is normal. The right atrium size is normal. Atrial septal aneurysm is present. Aortic Valve The Aortic valve is mildly sclerotic. Aortic valve is trileaflet. There is no aortic valvular stenosis. No aortic regurgitation is present. Mitral Valve . The mitral valve is mildly thickened. No evidence of mitral valve stenosis. Trace to mild mitral regurgitation. Tricuspid Valve The tricuspid valve is normal in structure. There is no tricuspid valve stenosis. Mild tricuspid regurgitation. Pulmonic Valve The pulmonary valve is normal in structure. There is no pulmonic valvular stenosis. Mild to moderate pulmonic regurgitation. Great Vessels The aortic root is normal in size. The ascending aorta is mildly dilated. Aortic arch is normal in caliber. IVC is normal in size and collapses >50% with inspiration. Pericardium There is no pericardial effusion. Technically limited subcostal imaging. 2D Dimensions IVSD d PLAX 0.96 cm M: 0.6-1.2LV Vol A2C d MOD 107.1 mL LVPW d PLAX 0.96 cm M: 0.6 - 1.2LV Vol A4C d MOD 122.6 mL LVID d PLAX 5.27 cm M: 4.2 - 5.8LA vol/ BSA A2C s A-L24.1 mL/m2 LVDs 3.65 cm M: 2.5 - 4.0LA vol/ BSA A4C s A-L24.1 mL/m2 Ao Root d 3.44 cm M: 3.1 - 3.7LA Vol/ BSA Biplane s A-L 24.8 mL/m2 RA Area A4C16.04 cm2LA Area A4C s MOD 17.44 cm2 RA Vol/ BSA A4C s A-L 19.8 mL/m2LA Area A2C s MOD 16.97 cm2 Ao Asc Diam d 3.51 cm M: 2.6 - 3.4LV EF A4C MOD 55.8 % LV EF Teichholz 57.8 %LV EF A2C MOD 55.5 % LVEF (Tenorio's)54.33 % M: 52 - 72LV EF Biplane MOD 54.3 % LV Rfvzit96.16 mL M: 62 - 313AW28.85 mL LV Volume Index44.08 mL/m2 M: 34 - 74SV Index31.95 mL/m2 LV Vol Biplane MOD 117.5 mL FS30.65 % M-Mode TAPSE 2.12 cm (M/F) >1.7 LV Diastology MV E' medial0.076 (>0.07 m/s)E/A Ratio 0.7 LV E/e MED6.25 (<14)MV E Vmax 0.48 (0.4-1.3 m/s) MV E' lateral0.073 (>0.1 m/s)MV A Vmax 0.65 (0.4-1.3 m/s) LV E/e LAT6.45 (<14)MV E/A Ratio 0.68 MV E/E' medial 6.28 MV E/E' lateral6.49 Aortic Valve LVOT Area3.16 cm2AoV Area Vmax2.42 cm2 LVOT Vmax 0.92 m/sAoV Area/ BSA (Vmax)1.21 cm2/m2 LVOT Mean Josue.0.61 m/sAVA Mean Josue.2.29 cm2 LVOT Peak Grad 3.4 mmHgAVA Mean Josue. Index1.15 cm2/m2 LVOT Mean Grad 1.7 mmHg LVOT VTI0.188 m LVOT Diam s 2.00 cm AoV Vmax1.20 m/s Velocity Ratio 0.77 AoV Mean Josue.0.84 m/s AoV Peak Grad5.7 mmHg LVOT SV 59.41 mL AoV Mean Grad3.1 mmHg AoV VTI0.227 m AoV Area VTI2.61 cm2 AoV Area/ BSA (VTI)1.31 cm/m2 Mitral Valve MV DT 315 (160-240 msec) MV PHT91 msec MV Area PHT 2.41 cm2 MV VTI 0.266 m MV Area VTI 2.24 (4.0-6.0 cm2) Pulmonary Valve PV Vmax 1.27 (0.5-1.5 m/s)RVOT Peak Gr.1.25 mmHg PV Peak Grad 6.4 mmHgRVOT Mean Gr.0.55 mmHg PV Mean Grad 3.4 mmHgRVOT VTI0.109 m PV VTI 0.228 mRVOT Vmax 0.56 m/s Tricuspid Valve TR Peak Grad 21.1 mmHgTR Vmax 2.30 m/s RA Pressure 3.00 mmHg RVSP (TR) 24.1 mmHg Ordered By: Pawel Alarcon Sa CC: Dictated By: Negar Gibson M.D. 09/19/22 1558 <Electronically signed by Negar Gibson M.D. in OV> 09/19/22 1605 Transcribed By: Negar Gibson MD Anesthesia Assessment and Plan Anesthesia History Personal History: No History of Anesthesia Complications Family History: No Family History of Anesthesia Complications Exercise Tolerance Exercise Tolerance: Metabolic Equivalents>4 Pertinent Negatives Pertinent Negatives: No Symptoms of GERD and No Major Cardiovascular Symptoms or Complaints Cardiac & Pulmonary Exam Cardiac Exam: Normal S1/S2 Heart Sounds Pulmonary Exam: Clear Bilateral Breath Sounds Implantable Cardiac Device Does patient have a Pacemaker or an ICD?: No Airway Exam Known Difficult Airway: No Mallampati Class: 1 Mouth Opening: Normal (> 3cm) Thyromental Distance: Greater than 3 cm Neck Range of Motion: Full ROM Neck Circumference: Normal Teeth Condition: Normal Dentition and Generalized Poor Dentition ASA Classification ASA Score: ASA 3 Emergency Case?: No NPO Status NPO Status: NPO Clears >2 hours, Solids >8 hours Anesthesia Plan Resuscitation Status: Full Code Anesthesia Technique: General Anesthesia Airway Planned: Natural Airway Monitors Used: Standard Monitors
[2023-01-06] MEDS: Lactated Ringers 1,000 ML 80 ML IV (07:07)
[2023-01-06 07:33] VITALS: BMI 27.2
--- NOTE | 2023-01-06 07:45 | BOWEL_PTH ---
PATIENT: Bharat Maguire LOC: [facility] U#:[id number] AGE/SX: 72/M ROOM: RE01/06/[address]: Juany Hawkins : 1950 BED: DIS: 01/06/2023 SPEC #: [id number] RECD: 01/06/23 12:43 STATUS: [facility] #: [id number] DINESH: 01/06/23 07:[address]: Juany Hawkins DEPT: Surgical Specimen RECD BY: Summer Sharma ENTERED: 01/06/23 12:45 SP TYPE: Bowel OTHR DR: Corrine Angeles Tissues: 1 - BIOPSY BOWEL 2 - BIOPSY BOWEL 3 - STOMACH BIOPSY 4 - STOMACH BIOPSY 5 - ESOPHAGUS BIOPSY 6 - ESOPHAGUS BIOPSY 7 - BIOPSY BOWEL 8 - BIOPSY BOWEL 9 - BIOPSY BOWEL Procedures: GROSS AND MICRO LEVEL 4 Comments: [id number]
[2023-01-06 08:25] VITALS: BP 86/56; PULSE 61; RESP 18; TEMP 36.3; O2SAT 93
[2023-01-06 08:52] VITALS: BP 115/73; PULSE 56; RESP 18; TEMP 36.1; O2SAT 97
[2023-01-06 09:05] VITALS: BP 123/72; PULSE 61; RESP 18; TEMP 36.6; O2SAT 97
--- NOTE | 2023-01-06 09:32 | W.ANESPOSTOP ---
Postoperative Evaluation Date, Time and Location Date Performed: 01/06/23 Time Performed: 09:32 Patient Location: Day Surgery Unit Vital Signs Most Recent Imported Vital Signs: Most Recent Vital Signs Temp Pulse Resp BP Pulse Ox 36.6 C 61 18 123/72 97 01/06/23 09:05 01/06/23 09:05 01/06/23 09:05 01/06/23 09:05 01/06/23 09:05 Pain Score Most Recent Pain Score: Most Recent Pain Score Pain Level 0 01/06/23 09:05 Assessment Mental Status: Awake (Alert & Oriented to Patient Baseline) Airway and Respiratory Function: Patent airway with normal (patient baseline) respiratory exam Cardiovascular Function: Hemodynamically Stable Hydration Status: Adequately Hydrated Nausea & Vomiting: No Nausea or Vomiting Pain: Pt. Denies Any Pain Peripheral Nerve Block: Patient did not receive a nerve block
== END 2023-01-06 09:18 | disposition home or self-care (01) ==
PROVIDERS: PCP Family Medicine; Visit Provider Surgery
PROC: (CPT 45380; principal; 2023-01-06 07:30)
DX: R19.7 Diarrhea, unspecified; Z86.010 Personal history of colon polyps; R13.10 Dysphagia, unspecified; K29.80 Duodenitis without bleeding
CPT/HCPCS: 45380; 43239; 88305; J2001

== ENCOUNTER → 2023-01-16 12:53 | Outpatient (BNVA) | payer MEDICARE, SELFPAY | PROVIDERS: PCP Family Medicine; Referring Provider Family Medicine; Visit Provider Surgery | DX: Z48.815 Encounter for surgical aftercare following surgery on the digestive system (principal) | CPT/HCPCS: 99212; 99213 ==

== ENCOUNTER 2023-08-16 03:05 | Outpatient (CLI) | payer MEDICARE, SELFPAY ==
[2023-08-16 13:05] LABS: Anion Gap 9.9 mmol/L (3-11); BUN 19 mg/dL (7-18); CO2 27.1 mmol/L (21.0-32.0); CREATININE 1.1 mg/dL (0.70-1.30); Calcium 9.4 mg/dL (8.5-10.1); Chloride 106 mmol/L (98-107); Estimated GFR 70.44 (mL/min/1.73m2); Glucose 99 mg/dL (74-106); Sodium 143 mmol/L (136-145)
[2023-08-16 19:08] LABS: PSA, Screening 2.5 ng/mL (<=6.5)
== END 2023-08-16 03:06 | disposition home or self-care (01) ==
LOC: LOS 03:05
PROVIDERS: PCP Family Medicine; Visit Provider Family Medicine
DX: N13.8 Other obstructive and reflux uropathy (principal); N40.1 Benign prostatic hyperplasia with lower urinary tract symptoms; Z12.5 Encounter for screening for malignant neoplasm of prostate; I10 Essential (primary) hypertension; I42.8 Other cardiomyopathies
CPT/HCPCS: 36415; 80048; 84153

== ENCOUNTER 2024-08-09 09:36 | Outpatient (CLI) | payer MEDICARE, SELFPAY ==
[2024-08-09 12:35] LABS: ALT 31 U/L (16-63); AST 14 U/L (15-37); Albumin 3.6 g/dL (3.4-5.0); Alkaline Phosphatase 86 U/L (46-116); Anion Gap 6.2 mmol/L (3-11); BUN 18 mg/dL (7-18); CO2 29.8 mmol/L (21.0-32.0); CREATININE 1.1 mg/dL (0.70-1.30); Calcium 9.3 mg/dL (8.5-10.1); Chloride 109 mmol/L (98-107); Estimated GFR 70.01 (mL/min/1.73m2); Glucose 93 mg/dL (74-106); Potassium 4.2 mmol/L (3.5-5.1); Sodium 145 mmol/L (136-145); Total Protein 7.1 g/dL (6.4-8.2)
== END 2024-08-09 09:37 | disposition home or self-care (01) ==
LOC: LOS 09:36
PROVIDERS: PCP Family Medicine; Referring Provider Family Medicine; Visit Provider Family Medicine
DX: Z00.00 Encounter for general adult medical examination without abnormal findings (principal); I42.8 Other cardiomyopathies; Z23 Encounter for immunization; K40.90 Unilateral inguinal hernia, without obstruction or gangrene, not specified as recurrent; N39.44 Nocturnal enuresis; N40.1 Benign prostatic hyperplasia with lower urinary tract symptoms; N13.8 Other obstructive and reflux uropathy
CPT/HCPCS: 36415; 80053

== ENCOUNTER → 2024-08-29 09:45 | Outpatient (BNVA) | payer MEDICARE, SELFPAY | PROVIDERS: PCP Family Medicine; Referring Provider Family Medicine; Visit Provider Surgery | DX: K40.20 Bilateral inguinal hernia, without obstruction or gangrene, not specified as recurrent (principal) | CPT/HCPCS: 99214 ==

== ENCOUNTER 2024-09-10 07:04 | Day surgery (SDC) | payer MEDICARE, SELFPAY ==
[2024-09-10] VITALS (26 sets, daily range): BP systolic 108–131; BP diastolic 49–109; PULSE 51–63; RESP 12–30; TEMP 36.4–36.5; O2SAT 92–100; BMI 28.6
--- NOTE | 2024-09-10 07:56 | W.ANESPRE ---
General Info Date of Service Date Performed: 09/10/24 Height: 5 ft 9.5 in Weight: 89.2 kg Body Mass Index (BMI): 28.6 Surgical Procedure: Operation Date: 09/10/24 08:40 Proposed Procedure Side Surgeon p Hernia Inguinal Laparoscopic w/Mesh Bilateral Negar Hernandez MD Meds Allergies and Home Medications Allergies Allergy/AdvReac Type Severity Reaction Status Date / Time No Known Allergies Allergy Verified 09/09/24 13:55 Home Medication ?Medication ?Instructions ?Recorded psyllium husk 3.4 gram/5.4 gram 2 tsp PO DAILY 08/12/21 oral powder (Metamucil) atorvastatin 40 mg tablet 40 mg PO QHS #90 tabs 07/12/24 spironolactone 25 mg tablet 25 mg PO DAILY #90 tabs 07/12/24 tamsulosin 0.4 mg capsule 0.4 mg PO DAILY #90 tab-caps 07/25/24 Current Visit Medications: Current Medications Generic Name Dose Route Start Last Admin Trade Name Freq PRN Reason Stop Dose Admin Ringer's Solution 1,000 mls @ 80 mls/hr 09/10/24 06:00 IV 09/10/24 23:59 INFUSION TAMARA Cefazolin Sodium/Dextrose 2 gm in 50 mls @ 100 mls/hr 09/10/24 07:45 Ancef Duplex IVPB 09/10/24 08:14 NOW ONE IV Miscellaneous Supplies 1 each 09/10/24 06:00 Iv Access IV 09/10/24 23:59 DIRECTED TAMARA Sodium Chloride 0 ml 09/10/24 06:00 Normal Saline Flush 10 Ml Syr IV 09/10/24 23:59 PRN PRN Sodium Chloride 0 ml 09/10/24 06:00 Normal Saline 10 Ml Vial IJ 09/10/24 23:59 DIRECTED PRN Sterile Water 0 ml 09/10/24 06:00 Water,Injection,Sterile 10 Ml Vial IJ 09/10/24 23:59 DIRECTED PRN PFSH Active Problems Active Problems: Problem Status Onset Code Inguinal hernia bilateral, non-recurrent Acute K40.20 Urinary incontinence, nocturnal enuresis Chronic N39.44 Left inguinal hernia Acute K40.90 Dysphagia Chronic 12/29/15 R13.10 Benign prostatic hyperplasia with urinary obstruction Chronic N40.1, N13.8 Non-ischemic cardiomyopathy Chronic I42.8 Sensorineural hearing loss, bilateral Chronic H90.3 Tinnitus, bilateral Chronic H93.13 Irritable bowel syndrome Chronic K58.9 Medical History Medical History Sleep apnea h/o PSG; positional. Improved with side-sleeping. Family history of malignant neoplasm of prostate (02/05/13) Polyp of colon (02/25/10) Dr. Arturo Urias Medical History Comments:: hx cardiomyopathy, with ablation. Surgical History Surgical History H/O colonoscopy with polypectomy (~12/2022) normal pathology. No further colonoscopy needed. S/P ablation operation for arrhythmia History of esophagogastroduodenoscopy (~12/2022) Status post arthroscopy of shoulder Status post rotator cuff repair Status post tonsillectomy Tobacco Smoking/Tobacco Use Status: Never Passive smoking exposure: Yes Alcohol Alcohol Intake: current Alcohol intake frequency: a few times a month Alcohol type: beer Substance Use Substance use: Never Substance use type: does not use Vital Signs and Lab Results Vital Signs Most Recent Vital Signs in EMR: Most Recent Vital Signs Temp Pulse Resp BP Pulse Ox 36.4 C L 55 L 14 130/109 H 100 09/10/24 07:32 09/10/24 07:32 09/10/24 07:32 09/10/24 07:32 09/10/24 07:32 Lab Results Blood Type / Crossmatch: No Data to Display Complete Blood Count: No Data to Display Complete Metabolic Panel: No Data to Display Liver Function Panel: No Data to Display Coagulation Panel: No Data to Display Cardiac Panel: No Data to Display Arterial Blood Gas: No Data to Display Venous Blood Gas: No Data to Display Pancreas Panel: No Data to Display Thyroid Panel: No Data to Display Infectious Disease: No Data to Display Blood Cultures: No Data to Display Toxicology Panel: No Data to Display Imaging and Studies Imaging and Studies Study information below may be from another EMR and interpreted by another provider. Please see original notes in EMR for more complete details. Stress Test Summary: STRESS TEST PATIENT NAME: SATNAM MAGUIRE #: [id number] ADMITTING PROVIDER: RIKI SEARS, PREETHACCOUNT #: [id number] PRIMARY CARE PROVIDER:DEVONTE FRIEDMAN OF SERVICE: 07/07/17 : 1950 *[facility]* *[facility]* [address] [place] [address] Stress Electrocardiography Oh protocol Date of study: 07/07/2017 *PATIENT PRESENTATION* Height: 177.8cm (70in) Blood Pressure: Weight: 81.8kg (180lb) BSA: 2.02m^2 Ordering physician: Devonte Friedman Impressions: - Normal study after maximal exercise. - Frequent PVC's at baseline that reduced in frequency at peak stress. Summary: 1. Stress: The target heart rate was achieved. Indication: R55. History: REASON FOR VISIT: SYNCOPE. PT EXPERIENCED A LOSS OF CONSCIOUSNESS WHILE DRIVING, POSSIBLE THAT PATIENT MAY HAVE FALLEN ASLEEP DRIVING. PT REPORTS OCCASIONAL PALPITATIONS, NO CHEST PAINS. HE VERBALIZES THAT 20 YEARS AGO I WAS TOLD I HAVE AN IRREGULAR HEART RHYTHM. Risk factors: FATHER HAD A STROKE AT AGE OF 78 YEARS. Family history of coronary artery disease. ALLERGIES: NO KNOWN ALLERGIES. MEDICATIONS: ASCORBIC ACID 500 MG DAILY. TAMSULOSIN HCL 0.4 MG DAILY. Protocol: Oh protocol. Baseline ECG: SINUS RHYTHM WITH MANY PVCs. HR 74 BPM. Stress protocol: + +---+ + !Stage !HR !BP (mmHg) ! + +---+ + !Baseline supine !74 !138/88 (105)! + +---+ + !Baseline standing !81 !138/84 (102)! + +---+ + !Stage I; 1.7mph, 10degrees; 3 min !102!142/86 (105)! + +---+ + !Stage II; 2.5mph, 12degrees; 3 min !113!150/84 (106)! + +---+ + !Stage III; 3.4mph, 14degrees; 3 min!135!156/78 (104)! + +---+ + !Peak stress !160! ! + +---+ + !Immediate post stress !---!164/78 (107)! + +---+ + !Recovery; 3 min !90 !162/80 (107)! + +---+ + !Recovery; 6 min !81 !156/80 (105)! + +---+ + !Recovery; 9 min !81 !132/80 (97) ! + +---+ + * Stress results: Maximal heart rate during stress was 160bpm (105% of maximal predicted heart rate). The maximal predicted heart rate was 152bpm. The target heart rate was achieved. The rate-pressure product for the peak heart rate and blood pressure was 14369oh Hg/min. Stress ECG: TREADMILL STRESS TEST ENDED IN 10 MINUTES & 29 SECONDS BECAUSE OF PATIENT FATIGUE. NORMAL HEART RATE AND BLOOD PRESSURE RESPONSE TO EXERCISE. FREQUENT ECTOPY. PVCs FREQUENT BIGEMINAL PATTERNS, FREQUENT PVC PAIRS AND OCCASIONAL 3 BEAT RUNS. NO ANGINA. NO SIGNIFICANT ST CHANGES. APPROXIMATE METS ACHIEVED = 12.6 ABOVE AVERAGE FUNCTIONAL CAPACITY FOR EXERCISE. Study data: Sara Rodriguez MD supervised and was readily available during the procedure. This study was interpreted by [facility]. Study status: Routine. Consent: The risks, benefits, and alternatives to the procedure were explained to the patient and informed consent was obtained. Procedure: Initial setup. A baseline ECG was recorded. Surface ECG leads and manual cuff blood pressure measurements were monitored. Heart sounds: Irregular. Lung sounds: Normal. Treadmill exercise testing was performed using the Oh protocol. Study completion: The patient tolerated the procedure well and was discharged from the lab. Discharge: The patient left the laboratory in stable condition. Birthdate: Patient birthdate: 1950. Sex: Gender: male. Study date: Study date: 07/07/2017. Study time: 08:30 AM. Signature Documentation: The Stress ECG portion of this study was interpreted by Sara Rodriguez MD. Electronically signed by Sara Rodriguez 07/07/2017 09:48 STRESS TEST PATIENT NAME: SATNAM MAGUIRE #: [id number] ADMITTING PROVIDER: SARA RODRIGUEZ MDACCOUNT #: [id number] PRIMARY CARE PROVIDER:DEVONTE FRIEDMAN DODATE OF SERVICE: 07/07/17 : 1950 *[facility]* *[facility]* [address] [place] [address] Stress Electrocardiography Oh protocol Date of study: 07/07/2017 *PATIENT PRESENTATION* Height: 177.8cm (70in) Blood Pressure: Weight: 81.8kg (180lb) BSA: 2.02m^2 Ordering physician: Devonte Friedman Impressions: - Normal study after maximal exercise. - Frequent PVC's at baseline that reduced in frequency at peak stress. Summary: Echocardiogram Summary: Patient Name: Bharat Maguire #: [id number]: DI Ordering Provider: Pawel Alarcon Sa #: [id number]: [facility] Primary Care Provider: Corrine Angeles M.D.Date of Exam: 09/19/22Sex: M Admission Date: 09/19/22 : 1950 Age: 71 APPROVED REPORT EXAM: Comprehensive 2D, Doppler, and color-flow Echocardiogram Patient Location: Out-Patient Main Line Assembler: Charleen Brito RDCS (AE) Indications: Nonsustained ventricular tachycardia Other Information Study Quality: Adequate Conclusion Normal left ventricular wall thickness and chamber size. Estimated ejection fraction is 55%. There are no segmental wall motion abnormalities Normal right ventricular size and systolic function Both atria are normal in size Aortic valve is trileaflet and mildly sclerotic without stenosis or regurgitation Mildly thickened mitral leaflets, trace to mild mitral regurgitation Normal tricuspid valve with mild regurgitation. Estimated right ventricular systolic pressure is 24 mmHg Mildly dilated ascending aorta measuring 3.51 cm Wall motion Left Ventricle The left ventricle is normal size. The left ventricular systolic function is normal. The left ventricular ejection fraction is within the normal range. There is normal left ventricular wall thickness. There is normal LV segmental wall motion. There is no ventricular septal defect visualized. LVEF is 55%. Right Ventricle The right ventricle is normal size. The right ventricular systolic function is normal. The RVSP is 24.1 mmHg. Atria The left atrium size is normal. The right atrium size is normal. Atrial septal aneurysm is present. Aortic Valve The Aortic valve is mildly sclerotic. Aortic valve is trileaflet. There is no aortic valvular stenosis. No aortic regurgitation is present. Mitral Valve . The mitral valve is mildly thickened. No evidence of mitral valve stenosis. Trace to mild mitral regurgitation. Tricuspid Valve The tricuspid valve is normal in structure. There is no tricuspid valve stenosis. Mild tricuspid regurgitation. Pulmonic Valve The pulmonary valve is normal in structure. There is no pulmonic valvular stenosis. Mild to moderate pulmonic regurgitation. Great Vessels The aortic root is normal in size. The ascending aorta is mildly dilated. Aortic arch is normal in caliber. IVC is normal in size and collapses >50% with inspiration. Pericardium There is no pericardial effusion. Technically limited subcostal imaging. 2D Dimensions IVSD d PLAX 0.96 cm M: 0.6-1.2LV Vol A2C d MOD 107.1 mL LVPW d PLAX 0.96 cm M: 0.6 - 1.2LV Vol A4C d MOD 122.6 mL LVID d PLAX 5.27 cm M: 4.2 - 5.8LA vol/ BSA A2C s A-L24.1 mL/m2 LVDs 3.65 cm M: 2.5 - 4.0LA vol/ BSA A4C s A-L24.1 mL/m2 Ao Root d 3.44 cm M: 3.1 - 3.7LA Vol/ BSA Biplane s A-L 24.8 mL/m2 RA Area A4C16.04 cm2LA Area A4C s MOD 17.44 cm2 RA Vol/ BSA A4C s A-L 19.8 mL/m2LA Area A2C s MOD 16.97 cm2 Ao Asc Diam d 3.51 cm M: 2.6 - 3.4LV EF A4C MOD 55.8 % LV EF Teichholz 57.8 %LV EF A2C MOD 55.5 % LVEF (Tenorio's)54.33 % M: 52 - 72LV EF Biplane MOD 54.3 % LV Ksoiym50.16 mL M: 62 - 856LF32.85 mL LV Volume Index44.08 mL/m2 M: 34 - 74SV Index31.95 mL/m2 LV Vol Biplane MOD 117.5 mL FS30.65 % M-Mode TAPSE 2.12 cm (M/F) >1.7 LV Diastology MV E' medial0.076 (>0.07 m/s)E/A Ratio 0.7 LV E/e MED6.25 (<14)MV E Vmax 0.48 (0.4-1.3 m/s) MV E' lateral0.073 (>0.1 m/s)MV A Vmax 0.65 (0.4-1.3 m/s) LV E/e LAT6.45 (<14)MV E/A Ratio 0.68 MV E/E' medial 6.28 MV E/E' lateral6.49 Aortic Valve LVOT Area3.16 cm2AoV Area Vmax2.42 cm2 LVOT Vmax 0.92 m/sAoV Area/ BSA (Vmax)1.21 cm2/m2 LVOT Mean Josue.0.61 m/sAVA Mean Josue.2.29 cm2 LVOT Peak Grad 3.4 mmHgAVA Mean Josue. Index1.15 cm2/m2 LVOT Mean Grad 1.7 mmHg LVOT VTI0.188 m LVOT Diam s 2.00 cm AoV Vmax1.20 m/s Velocity Ratio 0.77 AoV Mean Josue.0.84 m/s AoV Peak Grad5.7 mmHg LVOT SV 59.41 mL AoV Mean Grad3.1 mmHg AoV VTI0.227 m AoV Area VTI2.61 cm2 AoV Area/ BSA (VTI)1.31 cm/m2 Mitral Valve MV DT 315 (160-240 msec) MV PHT91 msec MV Area PHT 2.41 cm2 MV VTI 0.266 m MV Area VTI 2.24 (4.0-6.0 cm2) Pulmonary Valve PV Vmax 1.27 (0.5-1.5 m/s)RVOT Peak Gr.1.25 mmHg PV Peak Grad 6.4 mmHgRVOT Mean Gr.0.55 mmHg PV Mean Grad 3.4 mmHgRVOT VTI0.109 m PV VTI 0.228 mRVOT Vmax 0.56 m/s Tricuspid Valve TR Peak Grad 21.1 mmHgTR Vmax 2.30 m/s RA Pressure 3.00 mmHg RVSP (TR) 24.1 mmHg Ordered By: Pawel Alarcon Sa CC: Dictated By: Negar Gibson M.D. 09/19/22 1558 <Electronically signed by Negar Gibson M.D. in OV> 09/19/22 1605 Transcribed By: Negar Gibson MD Anesthesia Assessment and Plan Anesthesia History Personal History: No History of Anesthesia Complications Family History: No Family History of Anesthesia Complications Exercise Tolerance Exercise Tolerance: Metabolic Equivalents>4 Pertinent Negatives Pertinent Negatives: No Symptoms of GERD Cardiac & Pulmonary Exam Cardiac Exam: Normal S1/S2 Heart Sounds Pulmonary Exam: Clear Bilateral Breath Sounds Implantable Cardiac Device Does patient have a Pacemaker or an ICD?: No Airway Exam Known Difficult Airway: No Mallampati Class: 1 Mouth Opening: Normal (> 3cm) Thyromental Distance: Greater than 3 cm Neck Range of Motion: Full ROM Neck Circumference: Normal Teeth Condition: Normal Dentition and Generalized Poor Dentition ASA Classification ASA Score: ASA 2 Emergency Case?: No NPO Status NPO Status: NPO Clears >2 hours, Solids >8 hours Anesthesia Plan Resuscitation Status: Full Code Anesthesia Technique: General Anesthesia Airway Planned: Endotracheal Tube Monitors Used: Standard Monitors
[2024-09-10] MEDS: Lactated Ringers 1,000 ML 80 ML IV (07:57)
[2024-09-10] MEDS: ceFAZolin 2 GM/50 ML BAG IVPB (09:02)
[2024-09-10] MEDS: Bupivacaine 0.5% Pres-Free W/EPI 30 ML VIAL (09:57)
--- NOTE | 2024-09-10 11:11 | ROE_ITS ---
Operative Note Operative Note Refer to Anesthesia Record Procedure Description: PREOPERATIVE DIAGNOSIS: Bilateral inguinal hernia POSTOPERATIVE DIAGNOSIS: Bilateral direct inguinal hernias with no indirect component SURGEON: Negar Hernandez MD ASSOCIATE THEATRE PROFESSOR: KRISTY Aguilera NAME OF PROCEDURE: Laparoscopic bilateral inguinal hernia repair with mesh INDICATIONS: Symptomatic left inguinal hernia and subclinical right inguinal hernia detected on physical exam DVT PROPHYLAXIS: Sequential compression devices FINDINGS: Large fat-containing left direct hernia with no indirect component; small fat-containing right inguinal hernia, direct, with no indirect component OPERATIVE PROCEDURE: The patient was taken to the operating room, placed in the supine position. The patient was administered a satisfactory general endotracheal anesthesia. A timeout was observed, noting the patient's identity, the bi?laterality of the procedure, and the preoperative antibiotics. A Da Silva catheter was inserted and arms were tucked to the side. The entire abdomen was prepped with ChloraPrep and draped in a sterile fashion. A right paraumbilical incision was made dissecting down to the anterior fascia at the medial edge of the rectus muscle. The anterior fascia was incised and the rectus muscle fibers are retracted laterally and a Spacemaker balloon was inserted in the submuscular plane and passed through towards the pelvis under direct camera vision. The Spacemaker balloon was inflated towards the left side and then deflated. It was replaced towards the opposite side, reinflated, deflated and then removed. The structure balloon was inflated and then the preperitoneal space was insufflated with CO2 left up to a pressure of 14 mmHg. The left side was approached first. The incarcerated properitoneal fat in the direct hernia space was prominent and was dissected down out the hernia. Tissues medial and lateral to the cord were dissected with blunt dissection, revealed no indirect sac. The peritoneum was entered laterally and reapproximated with surgical clips. A 10 x 15 cm polyester mesh was chosen for the repair. The mesh was rolled up, inserted and unrolled and gradually worked into position. The mesh was affixed to Efren's ligament with the covidien powered absorbable fixation device on the medial inferior edge and then on the lateral superior edge was affixed to the abdominal wall anterior to the anterosuperior iliac crest. Next, the right side was approached with similar blunt dissection lateral and medial to the cord and contents. No indirect hernia was found. Direct space hernia contents, just a small amount of fat, was reduced. A 10 x 15 cm polyester mesh was chosen for the repair. After inserting the mesh it was unrolled, guided into place, affixed to Efren's ligament on the medial inferior edge in the anterior abdominal wall on the anterior lateral edge. The pneumoproperitoneum was then reduced under direct vision assuring that the mesh was in good position. Prior to removing the 5 mm ports 20 cc of 0.5% Marcaine was injected into the space. The ports were then removed and the structure balloon was removed. At the periumbilical incision the anterior fascia was closed with a [id number] 0 Vicryl suture. After irrigating the wounds, the skin edges were reapproximated with subcuticular 4-0 Monocryl sutures. Steri-Strips and Band-Aid dressings were placed. Sponge and instrument counts were correct. The patient was returned to the recovery room in stable condition. Date of Procedure: 09/10/24
[2024-09-10] MEDS: fentaNYL 100 MCG/2 ML VIAL IVP ×2 (11:34→11:40)
--- NOTE | 2024-09-10 13:20 | W.ANESPOSTOP ---
Postoperative Evaluation Date, Time and Location Date Performed: 09/10/24 Time Performed: 13:20 Patient Location: Day Surgery Unit Vital Signs Most Recent Imported Vital Signs: Most Recent Vital Signs Temp Pulse Resp BP Pulse Ox 36.5 C 51 L 18 125/74 96 09/10/24 12:35 09/10/24 12:35 09/10/24 12:35 09/10/24 12:35 09/10/24 12:35 Pain Score Most Recent Pain Score: Most Recent Pain Score Pain Level 4 09/10/24 12:35 Assessment Mental Status: Awake (Alert & Oriented to Patient Baseline) Airway and Respiratory Function: Patent airway with normal (patient baseline) respiratory exam Cardiovascular Function: Hemodynamically Stable Hydration Status: Adequately Hydrated Nausea & Vomiting: No Nausea or Vomiting Pain: Pain is tolerable per patient Peripheral Nerve Block: Patient did not receive a nerve block Postoperative Comments:: Pt. also complains of slight headache, believes to be from lack of caffeine today. Discussed if this gets worse or he develops other symptoms, then go to the ED or call 911 which he and his understand. He is currently drinking coffee now..
== END 2024-09-10 13:40 | disposition home or self-care (01) ==
PROVIDERS: PCP Family Medicine; Visit Provider Surgery
PROC: (CPT 49650; principal; 2024-09-10 08:30)
DX: K40.20 Bilateral inguinal hernia, without obstruction or gangrene, not specified as recurrent (principal)
CPT/HCPCS: 49505; C1781; J0131; J0690; J1100; J1885; J2003; J2405; J2704; J3010; J3475

== ENCOUNTER → 2024-09-23 10:19 | Outpatient (BNVA) | payer MEDICARE, SELFPAY | PROVIDERS: PCP Family Medicine; Referring Provider Family Medicine; Visit Provider Surgery | DX: Z48.817 Encounter for surgical aftercare following surgery on the skin and subcutaneous tissue (principal); K40.20 Bilateral inguinal hernia, without obstruction or gangrene, not specified as recurrent ==

== ENCOUNTER → 2024-10-10 10:12 | Outpatient (BNVA) | payer MEDICARE, SELFPAY | PROVIDERS: PCP Family Medicine; Referring Provider Family Medicine; Visit Provider Surgery | DX: K40.91 Unilateral inguinal hernia, without obstruction or gangrene, recurrent (principal) ==

== ENCOUNTER → 2024-12-12 10:16 | Outpatient (BNVA) | payer MEDICARE, SELFPAY | PROVIDERS: PCP Family Medicine; Referring Provider Family Medicine; Visit Provider Surgery | DX: K40.91 Unilateral inguinal hernia, without obstruction or gangrene, recurrent (principal) | CPT/HCPCS: 99215 ==

== ENCOUNTER 2025-01-14 06:12 | Day surgery (SDC) | payer MEDICARE, SELFPAY ==
--- NOTE | 2025-01-13 20:26 | W.PREOPHP ---
Assessment and Plan Assessment and plan (1) Recurrent left inguinal hernia: Status: Acute Assessment and plan: We reviewed the plan for an open repair of his recurrent left inguinal hernia with permanent mesh. Maritza is a very good understanding of the plan, and he has no new questions. We could proceed with the repair as discussed. History of Present Illness History of Present Illness Chief Complaint: Recurrent left inguinal hernia Narrative: He is a 73-year-old male who underwent laparoscopic total extraperitoneal repair of bilateral inguinal hernias in August 2024. Unfortunately, his postoperative course has been complicated by early recurrence of the left-sided hernia. He noticed this almost immediately after surgery, in the form of a bulge in the left groin with some mild associated discomfort. The discomfort actually improved quite a bit, but the bulge remains. Since his last office encounter, there have been no major changes with regards to the interval history PFSH All Active Problems Recurrent left inguinal hernia (Acute) Urinary incontinence, nocturnal enuresis (Chronic) intermittent Dysphagia (Chronic 12/29/15) vocal cord atrophy, has bread dysphagia, manages with chewing carefully. Benign prostatic hyperplasia with urinary obstruction (Chronic) Non-ischemic cardiomyopathy (Chronic) PVC ablation [facility]; follows with [facility] cardiology every few years. Sensorineural hearing loss, bilateral (Chronic) follows with Dr. Sky Tinnitus, bilateral (Chronic) Irritable bowel syndrome (Chronic) Evaluated at [facility] [place], managing with fiber, probiotics. Medical History Inguinal hernia bilateral, non-recurrent Sleep apnea h/o PSG; positional. Improved with side-sleeping. Family history of malignant neoplasm of prostate (02/05/13) Polyp of colon (02/25/10) Dr. Arturo Urias Surgical History Hx of bilateral inguinal hernia repair (~08/2024) laparoscopic, 2 [id number] mesh H/O colonoscopy with polypectomy (~12/2022) normal pathology. No further colonoscopy needed. S/P ablation operation for arrhythmia History of esophagogastroduodenoscopy (~12/2022) Status post arthroscopy of shoulder Status post rotator cuff repair Status post tonsillectomy Family History Father , 78 Stroke Cancer prostate Heart disease Sister Heart disease Sister Heart disease Maternal Grandfather , 68 Stroke Paternal Grandfather , 92 Neoplasm PROSTATE Cancer prostate Maternal Grandmother , 85 Diabetes Son No problems noted. Daughter No problems noted. Mother No problems noted. Paternal Grandmother No problems noted. 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67 Pets and animals: No Sexually active: No Do you think of yourself as: straight/heterosexual Current gender identity: male What is your relationship status?: How often do you talk on the phone with friends or family?: three or more times per week How often do you get together with friends or relatives?: once per week How often do you attend buddhism or anglican services?: 4 or more times per year Do you belong to any clubs or organized social groups?: no Panel score (0-1 are the most socially isolated patients): 3 What type of physical activity do you participate in: other Details: snow removal, firewood stacking, gardening Duration: 30-45 minutes/day Frequency: daily Yamile/Synagogue: None Special yamile needs: No Agree to transfusion: Yes Seatbelt use: always Helmet use: No Drive intox or ride w/intox goat driver: No Working smoke detector in home: Yes Carbon monox detector in home: No Firearms in home: Yes Firearms unloaded and locked: Yes Do you feel safe at home: Yes Do you feel safe in your relationship?: Yes Victim of physical abuse: No Victim of emotional abuse: No Victim of sexual abuse: No Would you like helpful sources: Yes (I am always up for learning about resources ) Meds Allergies and Home Medications Allergies Allergy/AdvReac Type Severity Reaction Status Date / Time No Known Allergies Allergy Verified 01/14/25 06:33 Home Medications ?Medication ?Instructions ?Recorded ?Confirmed ?Type psyllium husk 3.4 gram/5.4 gram 2 tsp PO DAILY 08/12/21 01/14/25 History oral powder (Metamucil) atorvastatin 40 mg tablet 40 mg PO QHS #90 tabs 07/12/24 01/14/25 Rx spironolactone 25 mg tablet 25 mg PO DAILY #90 tabs 07/12/24 01/14/25 Rx tamsulosin 0.4 mg capsule 0.4 mg PO DAILY #90 tab-caps 07/25/24 01/14/25 Rx Exam Const General: cooperative, healthy appearing and not in acute distress Neck Neck: normal visual inspection, no lymphadenopathy and supple Resp Effort & Inspection: normal respiratory effort Auscultation: clear to auscultation bilaterally Cardio Jugular venous pressure: no JVD Rate: regular rate Rhythm: regular rhythm Heart Sounds: S1 normal and S2 normal GI Inspection: normal to inspection Palpation: soft, no guarding, hernia (Left inguinal.) and nontender Percussion: normal to percussion Auscultation: normal bowel sounds Neuro General: patient alert, patient awake and patient oriented x3 Psych Appearance: grossly normal
--- NOTE | 2025-01-13 20:27 | W.PM.DSUDISC ---
Date of service: 01/14/25 Discharge Plan Disposition Patient Disposition: Home Condition: Good Discharge Details Reason For Visit: left inguinal hernia repair Attending Provider: Diego Gamino Primary Care Provider: Corrine Angeles Home Meds and New Rx's Prescriptions: New tramadol 50 mg tablet 50 mg PO Q8H PRNQty: 12 0RF Rx Instructions: Take 1 tablet by mouth up to every 8 hours if needed for severe pain Continued Metamucil 3.4 gram/5.4 gram powder 2 tsp PO DAILY Rx Instructions: mix into at least 8 oz of water or juice before administering atorvastatin 40 mg tablet 40 mg PO QHS Qty: 90 3RF spironolactone 25 mg tablet 25 mg PO DAILY Qty: 90 3RF tamsulosin 0.4 mg capsule 0.4 mg PO DAILY Qty: 90 3RF Discharge Instructions Instructions: Groin Hernia Repair, Open Surgery Additional Instructions: Abhijit, it was great to see you today, and I hope you have a quick and uneventful recovery from the repair. Things went very smoothly. We were able to reduce the hernia back into its normal position, and patched up just as we discussed beforehand. Hopefully this will provide a durable repair for years to come. I would expect to have more pain after the surgery compared to your laparoscopic surgery. I apologize for that, but hopefully will still be relatively comfortable. We did the nerve blocks beforehand to help, and I did put in a prescription for some stronger pain medication if you need that in the days to come. You should be up and moving around a little bit each day getting some basic exercise. During times of rest, try to keep your pelvis elevated. This will help with swelling. Ice packs are also very useful in the first few days. I would also expect a fair amount of bruising over the incision, which may even extend down into the scrotum. Do not be alarmed by that is extremely uncommon with this approach. Again, keeping your hips and scrotum elevated will help reduce any swelling. If you need anything at all, please do not hesitate to ask, otherwise we look forward to seeing you in the office on January 23 1. Resume all of your regular medications. 2. Use ice packs over the inciosn to help with pain and swelling. 3. Alternate over the counter tylenol and ibuprofen every 6 hours for the first 2 days, then use as needed. Use the prescription for tramadol if needed for more severe pain 4. Leave bandage in place for 24 hours, then remove. 5. Shower with warm soapy water. Pat dry. Replace bandaid if needed. 6. No soaking or tub baths until I see you in the office. 7. No heavy lifting until I see you in the office. 8. Call the office (or go directly to the emergency room after hours) if you notice any of the following: Develop chills (warm to touch), or if you have a thermometer and your temperature is above 101 Difficulty breathing or difficultly swallowing Persistent vomiting Any bleeding ? exceeding one tablespoon 9. Call your physician if the site where your intravenous was started becomes red, swollen, painful, and warm to touch. Stand Alone Forms: Anesthesia Discharge Inst., Ranjeet Enrique (DSU) Referrals: Diego Gamino MD [ [facility] STAFF PHYSICIAN, Surgery] - 01/23/25 2:15 pm Activity:: no heavy lifting Remove Dressings/Wound Care:: 24 hours Shower/Bathe:: 24 hours Diet:: As Tolerated Discharge Orders Discharge Orders: Discharge Order (Routine); Ordered 01/13/25 Ordered By: Diego Gamino DS: Diagnosis Discharge Diagnosis (1) Recurrent left inguinal hernia: Status: Acute Asessment and Plan: Postoperative follow-up
--- NOTE | 2025-01-13 20:30 | ROE_ITS ---
Operative Note Operative Note PRE-OP DIAGNOSIS: Recurrent left inguinal hernia POST-OP DIAGNOSIS: same (Recurrent left) PROCEDURE: Open left inguinal hernia repair (redo) with mesh SURGEON: Diego Gamino SENIOR SPECIALIST: Shelli Copeland ANESTHESIA TYPE: Local By Surgeon, General LMA/ETT and Other (Left inguinal tap block) Refer to Anesthesia Record ESTIMATED BLOOD LOSS: 25 PATHOLOGY: none sent COMPLICATIONS: None Patient was transported to: PACU Patient's condition: stable Implants: Bard PerFix light large plug and patch Indications: Maritza is a 74-year-old male who previously underwent laparoscopic left-sided inguinal hernia repair. His postoperative recovery was complicated by a recurrent inguinal hernia Findings: Direct left-sided inguinal hernia Procedure Description: I met with Maritza in the preoperative area, and we reviewed the interval hi story, and marked the correct side. He was in agreement. We then moved back to the operating room. He was assisted onto the OR table and padded and supported appropriately. General anesthesia was initiated, and the anesthesia team performed a left sided ultrasound-guided inguinal tap block. The surgical site was then prepped and draped in the usual fashion. I began by making an oblique incision over the left inguinal region. I dissected down through the skin to the deep fascia. Next, I incised the fascia along the length of the inguinal canal to the external ring. I then carefully identified the ilioinguinal nerve and sharply divided. Once this was complete, I bluntly dissected the shelving edge of the inguinal ligament down towards the pubic tubercle. There was a large bulge in the medial aspect of the canal floor consistent with a direct hernia.. Next, I began dissecting the specific cord structures. Great care was taken to spare the vas deferens and the blood supply to the testicle. Next, I isolated the hernia sac from the other inguinal structures. I reduced it back to its normal anatomic position. A large PerFix light plug was used to help reduce the hernia sac, and this was buttressed in place by imbricating the floor of the canal. There was no hernia at the internal ring, and the anatomy felt preserved and normal. I then reconstructed the floor of the canal with a mesh patch tailored to fit. I started by fixing it to the pubic tubercle. Next, I used Prolene sutures to affix it to the shelving edge of the inguinal ligament and the conjoined tendon. Laterally I tacked it to the external oblique fascia and reconstructed an internal ring without any strain on the cord structures. Once this was complete, I irrigated the surgical field. It appeared hemostatic. I then closed the anterior portion of the fascia to reconstruct the front wall of the inguinal canal. I did this with interrupted Vicryl stitches. Once again, I irrigated the surgical field and inspected for hemostasis. Finally, I approximated the superficial fascia and the deep layers of the skin with absorbable suture. Skin was closed with running subcuticular stitches. Band ages were applied, the patient was awakened and transferred to the recovery unit. Date of Procedure: 01/14/25
[2025-01-14] VITALS (13 sets, daily range): BP systolic 118–165; BP diastolic 54–97; PULSE 48–59; RESP 15–26; TEMP 36.2–36.5; O2SAT 95–99; BMI 28.7
--- NOTE | 2025-01-14 06:42 | W.ANESPRE ---
General Info Date of Service Date Performed: 01/14/25 Height: 5 ft 9 in Weight: 88.3 kg Body Mass Index (BMI): 28.7 Surgical Procedure: Operation Date: 01/14/25 07:40 Proposed Procedure Side Surgeon p Herniorrhaphy Inguinal w/Mesh Left Diego Gamino MD Meds Allergies and Home Medications Allergies Allergy/AdvReac Type Severity Reaction Status Date / Time No Known Allergies Allergy Verified 01/14/25 06:33 Home Medication ?Medication ?Instructions ?Recorded psyllium husk 3.4 gram/5.4 gram 2 tsp PO DAILY 08/12/21 oral powder (Metamucil) atorvastatin 40 mg tablet 40 mg PO QHS #90 tabs 07/12/24 spironolactone 25 mg tablet 25 mg PO DAILY #90 tabs 07/12/24 tamsulosin 0.4 mg capsule 0.4 mg PO DAILY #90 tab-caps 07/25/24 Current Visit Medications: Current Medications Generic Name Dose Route Start Last Admin Trade Name Freq PRN Reason Stop Dose Admin Acetaminophen 1,000 mg 01/14/25 06:00 Acetaminophen 500 Mg Tab PO 01/14/25 23:59 PREOP TAMARA Celecoxib 200 mg 01/14/25 06:00 Celecoxib 200 Mg Cap PO 01/14/25 23:59 PREOP TAMARA Gabapentin 600 mg 01/14/25 06:00 Gabapentin 300 Mg Cap PO 01/14/25 23:59 PREOP TAMARA Hydromorphone HCl 0.2 mg 01/13/25 20:31 Hydromorphone 2 Mg/Ml Syr IVP 02/12/25 20:30 Q1H PRN PRN Ringer's Solution 1,000 mls @ 80 mls/hr 01/14/25 06:00 IV 01/14/25 23:59 INFUSION TAMARA Cefazolin Sodium/Dextrose 2 gm in 50 mls @ 100 mls/hr 01/14/25 06:00 Ancef Duplex IVPB 01/14/25 23:59 PREOP TAMARA IV Miscellaneous Supplies 1 each 01/14/25 06:00 Iv Access IV 01/14/25 23:59 DIRECTED TAMARA Sodium Chloride 0 ml 01/14/25 06:00 Normal Saline Flush 10 Ml Syr IV 01/14/25 23:59 PRN PRN Sodium Chloride 0 ml 01/14/25 06:00 Normal Saline 10 Ml Vial IJ 01/14/25 23:59 DIRECTED PRN Sterile Water 0 ml 01/14/25 06:00 Water,Injection,Sterile 10 Ml Vial IJ 01/14/25 23:59 DIRECTED PRN Tramadol HCl 50 mg 01/13/25 20:31 Tramadol 50 Mg Tab PO 02/12/25 20:30 Q6H PRN PRN Pain PFSH Active Problems Active Problems: Problem Status Onset Code Recurrent left inguinal hernia Acute K40.91 Urinary incontinence, nocturnal enuresis Chronic N39.44 Dysphagia Chronic 12/29/15 R13.10 Benign prostatic hyperplasia with urinary obstruction Chronic N40.1, N13.8 Non-ischemic cardiomyopathy Chronic I42.8 Sensorineural hearing loss, bilateral Chronic H90.3 Tinnitus, bilateral Chronic H93.13 Irritable bowel syndrome Chronic K58.9 Medical History Medical History Inguinal hernia bilateral, non-recurrent Sleep apnea h/o PSG; positional. Improved with side-sleeping. Family history of malignant neoplasm of prostate (02/05/13) Polyp of colon (02/25/10) Dr. Arturo Urias Medical History Comments:: hx cardiomyopathy, with ablation. Surgical History Surgical History Hx of bilateral inguinal hernia repair (~08/2024) laparoscopic, 2 [id number] mesh H/O colonoscopy with polypectomy (~12/2022) normal pathology. No further colonoscopy needed. S/P ablation operation for arrhythmia History of esophagogastroduodenoscopy (~12/2022) Status post arthroscopy of shoulder Status post rotator cuff repair Status post tonsillectomy Tobacco Smoking/Tobacco Use Status: Never Passive smoking exposure: Yes Alcohol Alcohol Intake: current Alcohol intake frequency: a few times a month Alcohol type: beer Substance Use Substance use: Never Substance use type: does not use Vital Signs and Lab Results Vital Signs Most Recent Vital Signs in EMR: Most Recent Vital Signs Temp Pulse Resp BP Pulse Ox 36.3 C L 50 L 16 150/73 H 99 01/14/25 06:24 01/14/25 06:24 01/14/25 06:24 01/14/25 06:24 01/14/25 06:24 Imaging and Studies Imaging and Studies Study information below may be from another EMR and interpreted by another provider. Please see original notes in EMR for more complete details. Stress Test Summary: STRESS TEST PATIENT NAME: SATNAM MAGUIRE #: [id number] ADMITTING PROVIDER: RIKI SEARS, PREETHACCOUNT #: [id number] PRIMARY CARE PROVIDER:DEVONTE FRIEDMAN DODATE OF SERVICE: 07/07/17 : 1950 *[facility]* *[facility]* [address] [place] [address] Stress Electrocardiography Oh protocol Date of study: 07/07/2017 *PATIENT PRESENTATION* Height: 177.8cm (70in) Blood Pressure: Weight: 81.8kg (180lb) BSA: 2.02m^2 Ordering physician: Devonte Friedman Impressions: - Normal study after maximal exercise. - Frequent PVC's at baseline that reduced in frequency at peak stress. Summary: 1. Stress: The target heart rate was achieved. Indication: R55. History: REASON FOR VISIT: SYNCOPE. PT EXPERIENCED A LOSS OF CONSCIOUSNESS WHILE DRIVING, POSSIBLE THAT PATIENT MAY HAVE FALLEN ASLEEP DRIVING. PT REPORTS OCCASIONAL PALPITATIONS, NO CHEST PAINS. HE VERBALIZES THAT 20 YEARS AGO I WAS TOLD I HAVE AN IRREGULAR HEART RHYTHM. Risk factors: FATHER HAD A STROKE AT AGE OF 78 YEARS. Family history of coronary artery disease. ALLERGIES: NO KNOWN ALLERGIES. MEDICATIONS: ASCORBIC ACID 500 MG DAILY. TAMSULOSIN HCL 0.4 MG DAILY. Protocol: Oh protocol. Baseline ECG: SINUS RHYTHM WITH MANY PVCs. HR 74 BPM. Stress protocol: + +---+ + !Stage !HR !BP (mmHg) ! + +---+ + !Baseline supine !74 !138/88 (105)! + +---+ + !Baseline standing !81 !138/84 (102)! + +---+ + !Stage I; 1.7mph, 10degrees; 3 min !102!142/86 (105)! + +---+ + !Stage II; 2.5mph, 12degrees; 3 min !113!150/84 (106)! + +---+ + !Stage III; 3.4mph, 14degrees; 3 min!135!156/78 (104)! + +---+ + !Peak stress !160! ! + +---+ + !Immediate post stress !---!164/78 (107)! + +---+ + !Recovery; 3 min !90 !162/80 (107)! + +---+ + !Recovery; 6 min !81 !156/80 (105)! + +---+ + !Recovery; 9 min !81 !132/80 (97) ! + +---+ + * Stress results: Maximal heart rate during stress was 160bpm (105% of maximal predicted heart rate). The maximal predicted heart rate was 152bpm. The target heart rate was achieved. The rate-pressure product for the peak heart rate and blood pressure was 03108xp Hg/min. Stress ECG: TREADMILL STRESS TEST ENDED IN 10 MINUTES & 29 SECONDS BECAUSE OF PATIENT FATIGUE. NORMAL HEART RATE AND BLOOD PRESSURE RESPONSE TO EXERCISE. FREQUENT ECTOPY. PVCs FREQUENT BIGEMINAL PATTERNS, FREQUENT PVC PAIRS AND OCCASIONAL 3 BEAT RUNS. NO ANGINA. NO SIGNIFICANT ST CHANGES. APPROXIMATE METS ACHIEVED = 12.6 ABOVE AVERAGE FUNCTIONAL CAPACITY FOR EXERCISE. Study data: Sara Rodriguez MD supervised and was readily available during the procedure. This study was interpreted by [facility]. Study status: Routine. Consent: The risks, benefits, and alternatives to the procedure were explained to the patient and informed consent was obtained. Procedure: Initial setup. A baseline ECG was recorded. Surface ECG leads and manual cuff blood pressure measurements were monitored. Heart sounds: Irregular. Lung sounds: Normal. Treadmill exercise testing was performed using the Oh protocol. Study completion: The patient tolerated the procedure well and was discharged from the lab. Discharge: The patient left the laboratory in stable condition. Birthdate: Patient birthdate: 1950. Sex: Gender: male. Study date: Study date: 07/07/2017. Study time: 08:30 AM. Signature Documentation: The Stress ECG portion of this study was interpreted by Sara Rodriguez MD. Electronically signed by Sara Rodriguez 07/07/2017 09:48 STRESS TEST PATIENT NAME: SATNAM MAGUIRE #: [id number] ADMITTING PROVIDER: RIKI SEARS, SARAACCOUNT #: [id number] PRIMARY CARE PROVIDER:DEVONTE FRIEDMAN OF SERVICE: 07/07/17 : 1950 *[facility]* *[facility]* [address] [place] [address] Stress Electrocardiography Oh protocol Date of study: 07/07/2017 *PATIENT PRESENTATION* Height: 177.8cm (70in) Blood Pressure: Weight: 81.8kg (180lb) BSA: 2.02m^2 Ordering physician: Devonte Friedman Impressions: - Normal study after maximal exercise. - Frequent PVC's at baseline that reduced in frequency at peak stress. Summary: Echocardiogram Summary: Patient Name: Bharat Maguire #: [id number]: DI Ordering Provider: Pawel Alarcon Sa #: [id number]: REG CLI Primary Care Provider: Corrine Angeles M.D.Date of Exam: 09/19/22Sex: M Admission Date: 09/19/22 : 1950 Age: 71 APPROVED REPORT EXAM: Comprehensive 2D, Doppler, and color-flow Echocardiogram Patient Location: Out-Patient Interventional Technologist: Charleen Brito RDCS (AE) Indications: Nonsustained ventricular tachycardia Other Information Study Quality: Adequate Conclusion Normal left ventricular wall thickness and chamber size. Estimated ejection fraction is 55%. There are no segmental wall motion abnormalities Normal right ventricular size and systolic function Both atria are normal in size Aortic valve is trileaflet and mildly sclerotic without stenosis or regurgitation Mildly thickened mitral leaflets, trace to mild mitral regurgitation Normal tricuspid valve with mild regurgitation. Estimated right ventricular systolic pressure is 24 mmHg Mildly dilated ascending aorta measuring 3.51 cm Wall motion Left Ventricle The left ventricle is normal size. The left ventricular systolic function is normal. The left ventricular ejection fraction is within the normal range. There is normal left ventricular wall thickness. There is normal LV segmental wall motion. There is no ventricular septal defect visualized. LVEF is 55%. Right Ventricle The right ventricle is normal size. The right ventricular systolic function is normal. The RVSP is 24.1 mmHg. Atria The left atrium size is normal. The right atrium size is normal. Atrial septal aneurysm is present. Aortic Valve The Aortic valve is mildly sclerotic. Aortic valve is trileaflet. There is no aortic valvular stenosis. No aortic regurgitation is present. Mitral Valve . The mitral valve is mildly thickened. No evidence of mitral valve stenosis. Trace to mild mitral regurgitation. Tricuspid Valve The tricuspid valve is normal in structure. There is no tricuspid valve stenosis. Mild tricuspid regurgitation. Pulmonic Valve The pulmonary valve is normal in structure. There is no pulmonic valvular stenosis. Mild to moderate pulmonic regurgitation. Great Vessels The aortic root is normal in size. The ascending aorta is mildly dilated. Aortic arch is normal in caliber. IVC is normal in size and collapses >50% with inspiration. Pericardium There is no pericardial effusion. Technically limited subcostal imaging. 2D Dimensions IVSD d PLAX 0.96 cm M: 0.6-1.2LV Vol A2C d MOD 107.1 mL LVPW d PLAX 0.96 cm M: 0.6 - 1.2LV Vol A4C d MOD 122.6 mL LVID d PLAX 5.27 cm M: 4.2 - 5.8LA vol/ BSA A2C s A-L24.1 mL/m2 LVDs 3.65 cm M: 2.5 - 4.0LA vol/ BSA A4C s A-L24.1 mL/m2 Ao Root d 3.44 cm M: 3.1 - 3.7LA Vol/ BSA Biplane s A-L 24.8 mL/m2 RA Area A4C16.04 cm2LA Area A4C s MOD 17.44 cm2 RA Vol/ BSA A4C s A-L 19.8 mL/m2LA Area A2C s MOD 16.97 cm2 Ao Asc Diam d 3.51 cm M: 2.6 - 3.4LV EF A4C MOD 55.8 % LV EF Teichholz 57.8 %LV EF A2C MOD 55.5 % LVEF (Tenorio's)54.33 % M: 52 - 72LV EF Biplane MOD 54.3 % LV Tcpqfk15.16 mL M: 62 - 903GN15.85 mL LV Volume Index44.08 mL/m2 M: 34 - 74SV Index31.95 mL/m2 LV Vol Biplane MOD 117.5 mL FS30.65 % M-Mode TAPSE 2.12 cm (M/F) >1.7 LV Diastology MV E' medial0.076 (>0.07 m/s)E/A Ratio 0.7 LV E/e MED6.25 (<14)MV E Vmax 0.48 (0.4-1.3 m/s) MV E' lateral0.073 (>0.1 m/s)MV A Vmax 0.65 (0.4-1.3 m/s) LV E/e LAT6.45 (<14)MV E/A Ratio 0.68 MV E/E' medial 6.28 MV E/E' lateral6.49 Aortic Valve LVOT Area3.16 cm2AoV Area Vmax2.42 cm2 LVOT Vmax 0.92 m/sAoV Area/ BSA (Vmax)1.21 cm2/m2 LVOT Mean Josue.0.61 m/sAVA Mean Josue.2.29 cm2 LVOT Peak Grad 3.4 mmHgAVA Mean Josue. Index1.15 cm2/m2 LVOT Mean Grad 1.7 mmHg LVOT VTI0.188 m LVOT Diam s 2.00 cm AoV Vmax1.20 m/s Velocity Ratio 0.77 AoV Mean Josue.0.84 m/s AoV Peak Grad5.7 mmHg LVOT SV 59.41 mL AoV Mean Grad3.1 mmHg AoV VTI0.227 m AoV Area VTI2.61 cm2 AoV Area/ BSA (VTI)1.31 cm/m2 Mitral Valve MV DT 315 (160-240 msec) MV PHT91 msec MV Area PHT 2.41 cm2 MV VTI 0.266 m MV Area VTI 2.24 (4.0-6.0 cm2) Pulmonary Valve PV Vmax 1.27 (0.5-1.5 m/s)RVOT Peak Gr.1.25 mmHg PV Peak Grad 6.4 mmHgRVOT Mean Gr.0.55 mmHg PV Mean Grad 3.4 mmHgRVOT VTI0.109 m PV VTI 0.228 mRVOT Vmax 0.56 m/s Tricuspid Valve TR Peak Grad 21.1 mmHgTR Vmax 2.30 m/s RA Pressure 3.00 mmHg RVSP (TR) 24.1 mmHg Ordered By: Pawel Alarcon Sa CC: Dictated By: Negar Gibson M.D. 09/19/22 [id number] <Electronically signed by Negar Gibson M.D. in OV> 09/19/22 1605 Transcribed By: Negar Gibson MD Anesthesia Assessment and Plan Anesthesia History Personal History: No History of Anesthesia Complications Family History: No Family History of Anesthesia Complications Exercise Tolerance Exercise Tolerance: Metabolic Equivalents>4 Pertinent Negatives Pertinent Negatives: No Symptoms of GERD Cardiac & Pulmonary Exam Cardiac Exam: Normal S1/S2 Heart Sounds Pulmonary Exam: Clear Bilateral Breath Sounds Implantable Cardiac Device Does patient have a Pacemaker or an ICD?: No Airway Exam Known Difficult Airway: No Mallampati Class: 1 Mouth Opening: Normal (> 3cm) Thyromental Distance: Greater than 3 cm Neck Range of Motion: Full ROM Neck Circumference: Normal Teeth Condition: Normal Dentition and Generalized Poor Dentition ASA Classification ASA Score: ASA 2 Emergency Case?: No NPO Status NPO Status: NPO Clears >2 hours, Solids >8 hours Anesthesia Plan Resuscitation Status: Full Code Anesthesia Technique: General Anesthesia Airway Planned: Endotracheal Tube Pain Management: Surgeon and patient request nerve block Monitors Used: Standard Monitors and SedLine
[2025-01-14] MEDS: Celecoxib 200 MG CAP PO (06:52)
[2025-01-14] MEDS: Gabapentin 300 MG CAP 600 MG PO (06:53)
[2025-01-14] MEDS: Acetaminophen 500 MG TAB 1000 MG PO (06:53)
[2025-01-14] MEDS: Lactated Ringers 1,000 ML 80 ML IV (06:54)
[2025-01-14] MEDS: ceFAZolin 2 GM/50 ML BAG IVPB (07:46)
--- NOTE | 2025-01-14 07:59 | W.ANESNERVE ---
Nerve Block Single Injection Procedure Date and Time Date Performed: 01/14/25 Procedure Start: 07:38 Location Where Procedure Performed Procedure Location: Operating Room Procedure Stop: 07:42 Reason Performed: Postoperative Analgesia Requesting Provider: Diego Gamino Timeout Performed Timeout Performed: Yes Monitoring Used ECG, Blood Pressure, SpO2 and ETCO2 Sterility Sterility: Hand Hygiene, Surgical Cap, Surgical Mask, Sterile Gloves and Chlorhexidine Sedation Given During Procedure Sedation Given (Indicate Dose Given): No Sedation given Patient Mental Status Patient Mental Status: Performed under general anesthesia Nerve Block 1st Nerve Block: Laterality: Left Block Type: TAP Unilateral Ultrasound Image Saved?: Yes Needle / Catheter Used: 100mm SonoPlex II Local Anesthetic Bolus (Indicate Dose Given): Injected in 3-5ml increments after negative blood aspiration, Bupivacaine 0.25% Dose:: 10 ml and Exparel Dose:: 10 ml Additives (Indicate Dose Given): None Ultrasound: Sterile probe cover and gel used Nerve Stimulator: Not Used Paresthesia: None Procedure Tolerated: No Complications and Patient tolerated well Procedure Outcome: Successful Performed By: Rylan Jackson
[2025-01-14] MEDS: Bupivacaine 0.25% Pres-Free W/EPI 30 ML VIAL (08:01)
--- NOTE | 2025-01-14 08:45 | RT.EKG_ITS ---
APPROVED REPORT Exam: Resting ECG Reason for Exam: PACU Patient Location: O HR:50 bpm ECG Measurements Heart Rate 50 AXIS SD 193 P 24 QRSd 117 QRS 28 QT 466 T -3 QTc 425 Conclusion Sinus bradycardia...rate< 60 Normal Electrocardiogram
[2025-01-14] MEDS: HYDROmorphone 2 MG/ML SYR IVP ×4 (09:27→09:57)
--- NOTE | 2025-01-14 12:12 | ANES.POST_ITS ---
Postoperative Evaluation Date, Time and Location Date Performed: 01/14/25 Time Performed: 12:03 Patient Location: Day Surgery Unit Vital Signs Most Recent Imported Vital Signs: Most Recent Vital Signs Temp Pulse Resp BP Pulse Ox 36.5 C 56 L 17 165/68 H 97 01/14/25 10:45 01/14/25 10:45 01/14/25 10:45 01/14/25 10:45 01/14/25 10:45 Pain Score Most Recent Pain Score: Most Recent Pain Score Pain Level 4 01/14/25 10:45 Assessment Mental Status: Awake (Alert & Oriented to Patient Baseline) Airway and Respiratory Function: Patent airway with normal (patient baseline) respiratory exam Cardiovascular Function: Hemodynamically Stable Hydration Status: Adequately Hydrated Nausea & Vomiting: No Nausea or Vomiting Pain: Pain is tolerable per patient Peripheral Nerve Block: Regional nerve block not resolved at time of post operative discharge Postoperative Comments:: Discussed 7 beat run of Vtach that occured intraoperatively. Was about 30 seconds after Zofran given. 12 lead taken in PACU, no significant findings. As occured under GETA and no other PVCs or other runs of VT I think it is reaso nable for him to be discharged home. Patient given instructions relating to arrhythmias and educated to when to call 911. I advised him to make his rn progressive care unit aware of the event and they can determine if they feel he needs follow-up.
== END 2025-01-14 12:17 | disposition home or self-care (01) ==
LOC: SUR 06:12
PROVIDERS: PCP Family Medicine; Visit Provider Surgery
PROC: (CPT 49505; principal; 2025-01-14 07:30)
DX: K40.91 Unilateral inguinal hernia, without obstruction or gangrene, recurrent (principal)
CPT/HCPCS: 49505; 64486; 93005; 93010; C1781; J0665; J0666; J0690; J1100; J1171; J2003; J2405; J2704; J3475

== ENCOUNTER → 2025-01-23 13:54 | Outpatient (BNVA) | payer MEDICARE, SELFPAY | PROVIDERS: PCP Family Medicine; Referring Provider Family Medicine; Visit Provider Physical Therapy Assistant | DX: Z48.89 Encounter for other specified surgical aftercare (principal) | CPT/HCPCS: 99024 ==